=== PATIENT | male | born 1930 | race Caucasian/White ===

== ENCOUNTER 2018-10-14 11:01 | Emergency (ER) | payer MEDICARE ==
[~2018-10-14] VITALS: Ht 165.1 cm; Wt 100.0 kg
[2018-10-14 11:43] LABS: BASOPHILS # (AUTO) 0.1 X10'3 (0-0.2); BASOPHILS % (AUTO) 0.8 % (0-1); EOSINOPHILS # (AUTO) 0.2 X10'3 (0-0.9); EOSINOPHILS % (AUTO) 2.5 % (0-6); HEMATOCRIT 39.9 % (42.0-52.0); HEMOGLOBIN 12.8 g/dl (14.0-17.9); LYMPHOCYTES # (AUTO) 1.2 X10'3 (1.1-4.8); LYMPHOCYTES % (AUTO) 13.1 % (21-51); MEAN CORPUSCULAR HEMOGLOBIN 30.6 PG (27.0-31.0); MEAN CORPUSCULAR HGB CONC 32.1 g/dL (33.0-36.5); MEAN CORPUSCULAR VOLUME 95.2 FL (78-98); MEAN PLATELET VOLUME 6.3 FL (7.4-10.4); MONOCYTES # (AUTO) 0.8 X10'3 (0-0.9); MONOCYTES % (AUTO) 9.3 % (2-12); NEUTROPHILS # (AUTO) 6.6 X10'3 (1.8-7.7); NEUTROPHILS % (AUTO) 74.3 % (42-75); PLATELET COUNT 286 X10'3 (140-440); RED BLOOD COUNT 4.19 X10'6 (4.70-6.10); RED CELL DISTRIBUTION WIDTH 18.3 % (11.5-14.5)
[2018-10-14 11:52] LABS: ALANINE AMINOTRANSFERASE 39 U/L (12-78); ALBUMIN 3.2 G/DL (3.4-5.0); ALBUMIN/GLOBULIN RATIO 0.9 (1.1-1.5); ALKALINE PHOSPHATASE 96 IU/L (46-116); ANION GAP 7 (8-16); ASPARTATE AMINO TRANSFERASE 29 U/L (10-37); BILIRUBIN,TOTAL 0.3 MG/DL (0.1-1.0); BLOOD UREA NITROGEN 23 MG/DL (7-18); CALCIUM 8.9 MG/DL (8.5-10.1); CHLORIDE 100 MMOL/L (99-107); CREATININE 1.21 MG/DL (0.60-1.10); GLUCOSE 90 MG/DL (70-104); POTASSIUM 4.2 MMOL/L (3.5-5.1); SODIUM 139 MMOL/L (135-145); TOTAL CARBON DIOXIDE 32.2 MMOL/L (24-32); TOTAL PROTEIN 6.7 G/DL (6.4-8.2); eGFR 57 ML/MIN
[2018-10-14 11:55] LABS: INR 0.9 INR; PARTIAL THROMBOPLASTIN TIME 26 SECONDS (22-32); PROTHROMBIN TIME 9.6 SECONDS (9.0-12.0)
[2018-10-14 11:58] VITALS: BP 182/114
[2018-10-14] MEDS ORDERED: furosemide 20MG tablet PO ONE (12:10)
[2018-10-14] MEDS ORDERED: AMLO10TA PO (12:41)
== END 2018-10-14 13:16 | disposition home or self-care (01) ==
LOC: ER 11:03
DX: I11.0 Hypertensive heart disease with heart failure (principal); I50.9 Heart failure, unspecified; R60.0 Localized edema; Z98.890 Other specified postprocedural states; Z88.1 Allergy status to other antibiotic agents; Z88.6 Allergy status to analgesic agent; Z88.5 Allergy status to narcotic agent; Z79.899 Other long term (current) drug therapy
CPT/HCPCS: 36415; 71045; 80053; 83880; 84484; 85025; 85610; 85730; 93005; 99284

== ENCOUNTER 2019-01-17 11:49 | Day surgery (SDC) | payer MEDICARE, BC ==
[2019-01-13 11:43] LABS: BASOPHILS # (AUTO) 0.1 X10'3 (0-0.2); BASOPHILS % (AUTO) 0.8 % (0-1); EOSINOPHILS # (AUTO) 0.2 X10'3 (0-0.9); EOSINOPHILS % (AUTO) 2.6 % (0-6); HEMATOCRIT 31.9 % (42.0-52.0); HEMOGLOBIN 10.3 g/dl (14.0-17.9); LYMPHOCYTES # (AUTO) 1.3 X10'3 (1.1-4.8); LYMPHOCYTES % (AUTO) 15.9 % (21-51); MEAN CORPUSCULAR HEMOGLOBIN 30.6 PG (27.0-31.0); MEAN CORPUSCULAR HGB CONC 32.2 g/dL (33.0-36.5); MEAN PLATELET VOLUME 6.3 FL (7.4-10.4); MONOCYTES # (AUTO) 1.1 X10'3 (0-0.9); NEUTROPHILS # (AUTO) 5.5 X10'3 (1.8-7.7); NEUTROPHILS % (AUTO) 67.7 % (42-75); PLATELET COUNT 350 X10'3 (140-440); RED BLOOD COUNT 3.36 X10'6 (4.70-6.10); RED CELL DISTRIBUTION WIDTH 18.2 % (11.5-14.5); WHITE BLOOD COUNT 8.2 X10'3 (4.5-11.0)
[2019-01-13 11:52] LABS: ALBUMIN 2.7 G/DL (3.4-5.0); ANION GAP 8 (8-16); BLOOD UREA NITROGEN 21 MG/DL (7-18); BUN/CREATININE RATIO 13.7 (5.4-32.0); CALCIUM 8.6 MG/DL (8.5-10.1); CHLORIDE 100 MMOL/L (99-107); CREATININE 1.53 MG/DL (0.60-1.10); GLUCOSE 94 MG/DL (70-104); SODIUM 138 MMOL/L (135-145); TOTAL CARBON DIOXIDE 30.2 MMOL/L (24-32); eGFR 43 ML/MIN
[2019-01-13 11:56] LABS: PARTIAL THROMBOPLASTIN TIME 29 SECONDS (22-32); POTASSIUM 3.7 MMOL/L (3.5-5.1)
[~2019-01-17] VITALS: Ht 167.6 cm; Wt 94.5 kg
[~2019-01-17 11:49] MED LIST: AMLO10TA PO
[2019-01-17 12:30] VITALS: BP 129/72
[2019-01-17] MEDS ORDERED: RANI300T4 PO (14:06)
[2019-01-17] MEDS ORDERED: CARB1TAB23 PO (14:06)
[2019-01-17] MEDS ORDERED: [UNRECOGNIZED DRUG - CODE] PO (14:06)
[2019-01-17] MEDS ORDERED: OMEP20CA11 PO (14:06)
[2019-01-17] MEDS ORDERED: FURO-149 PO (14:06)
[2019-01-17] MEDS ORDERED: FERR325T28 PO (14:06)
[2019-01-17] MEDS ORDERED: MULT-933 PO (14:06)
[2019-01-17] MEDS ORDERED: MELA3TAB PO (14:06)
[2019-01-17] MEDS ORDERED: DOXE50CA4 PO (14:06)
[2019-01-17] MEDS ORDERED: PRED20TA PO (14:06)
[2019-01-17] MEDS ORDERED: BACL5TAB PO (14:06)
[2019-01-17] MEDS ORDERED: SULFAMETHOXAZOLE PO (14:06)
[2019-01-17] MEDS ORDERED: DIPH25CA83 PO (14:06)
[2019-01-17] MEDS ORDERED: LEFL10TA16 PO (14:06)
[2019-01-17] MEDS ORDERED: DOXA2TAB PO (14:06)
[2019-01-17] MEDS ORDERED: POTA20TA10 PO (14:06)
[2019-01-17] MEDS ORDERED: DULO60CA45 PO (14:06)
[2019-01-17] MEDS ORDERED: CETI10CA PO (14:06)
[2019-01-17] MEDS ORDERED: CALC-787 PO (14:06)
[2019-01-17] MEDS ORDERED: PRAM0.129 PO (14:06)
[2019-01-17] MEDS ORDERED: SIMV20TA5 PO (14:06)
[2019-01-17] MEDS ORDERED: DICL75TA5 PO (14:06)
[2019-01-17] MEDS ORDERED: ASPI-611 PO (14:06)
[2019-01-17] MEDS ORDERED: FLUT16SP10 (14:06)
[2019-01-17] MEDS ORDERED: LEVO50TA8 PO (14:06)
[2019-01-17] MEDS ORDERED: ACET-812 PO (14:06)
[2019-01-17] MEDS ORDERED: GABA-532 PO (14:06)
[2019-01-17] MEDS ORDERED: diphenhydrAMINE 25mg capsule PO PRN (14:20)
[2019-01-17] MEDS ORDERED: normal saline 1,000 ML IV SCH (14:20)
[2019-01-17] MEDS ORDERED: LORazepam 0.5 MG tablet PO PRN (14:20)
[2019-01-17] MEDS ORDERED: LIDOcaine 1% (10mg/ml)w/preservative injection 20ml MDV ONE (16:33)
[2019-01-17] MEDS ORDERED: iohexol 350MG/ML 100ml bottle IV ONE (16:33)
--- NOTE | 2019-01-17 17:54 | NUR ---
PT HAVING ADVERSE REACTION TO ATIVAN, RESTLESS AND HAVING MILD HALLUCINATIONS. FILLER BLENDER INFORMED PRIOR TO PROCEDURE.
[2019-01-17 19:23] VITALS: BP 136/76
[2019-01-17 19:38] VITALS: BP 141/87
[2019-01-17 19:53] VITALS: BP 140/90
[2019-01-17 20:09] VITALS: BP 149/89
[2019-01-17] MEDS ORDERED: HYDROcodone/acetaminophen 5mg/325mg tablet PO PRN (20:15)
[2019-01-17] MEDS ORDERED: HYDROcodone/acetaminophen 10/325mg tab PO PRN (20:15)
[2019-01-17] MEDS ORDERED: ondansetron/PF 4mg/2ml inj IV PRN (20:15)
[2019-01-17] MEDS ORDERED: proCHLORperazine 10 MG/2 ml inj IV PRN (20:15)
[2019-01-17] MEDS ORDERED: OXAZEpam 15mg capsule PO PRN (20:15)
[2019-01-17 20:23] VITALS: BP 159/80
== END 2019-01-17 21:05 | disposition home or self-care (01) ==
LOC: SSTAY O 11:49
PROVIDERS: ATTEND Internal Medicine Interventional Cardiology
DX: I25.10 Atherosclerotic heart disease of native coronary artery without angina pectoris (principal); G47.33 Obstructive sleep apnea (adult) (pediatric); I10 Essential (primary) hypertension; E03.9 Hypothyroidism, unspecified; E78.5 Hyperlipidemia, unspecified; M06.9 Rheumatoid arthritis, unspecified; G20 Parkinson's disease; D64.9 Anemia, unspecified; Z79.899 Other long term (current) drug therapy; Z79.82 Long term (current) use of aspirin; I35.0 Nonrheumatic aortic (valve) stenosis; Z88.9 Allergy status to unspecified drugs, medicaments and biological substances; Z88.4 Allergy status to anesthetic agent; Z91.041 Radiographic dye allergy status
CPT/HCPCS: 36415; 80048; 85025; 85610; 85730; 93005; 93454; A6257; C1769; J1644; J2001; J7030; Q0163; Q9967; A4620

== ENCOUNTER 2019-06-30 11:41 | Inpatient (IN) | payer MEDICARE, BC ==
[~2019-06-30] VITALS: Ht 165.1 cm; Wt 97.7 kg
[~2019-06-30 11:41] MED LIST changes: +ACET-812 PO; -AMLO10TA PO; +ASPI-611 PO; +BACL5TAB PO; +CALC-787 PO; +CARB1TAB23 PO; +CETI10CA PO; +DICL75TA5 PO; +DIPH25CA83 PO; +DOXA2TAB PO; +DOXE50CA4 PO; +DULO60CA45 PO; +FERR325T28 PO; +FLUT16SP10; +FURO-149 PO; +GABA-532 PO; +LEFL10TA16 PO; +LEVO50TA8 PO; +MELA3TAB64 PO; +MULT-933 PO; +OMEP20CA11 PO; +POTA20TA10 PO; +PRAM0.129 PO; +PRED20TA PO; +RANI300T4 PO; +SIMV-42 PO; +SULFAMETHOXAZOLE PO; +[UNRECOGNIZED DRUG - CODE] PO
[2019-06-30 12:09] LABS: BASOPHILS # (AUTO) 0.1 X10'3 (0-0.2); BASOPHILS % (AUTO) 1.1 % (0-1); EOSINOPHILS # (AUTO) 0.6 X10'3 (0-0.9); EOSINOPHILS % (AUTO) 6.5 % (0-6); HEMATOCRIT 29.7 % (42.0-52.0); HEMOGLOBIN 9.7 g/dl (14.0-17.9); LYMPHOCYTES # (AUTO) 1.2 X10'3 (1.1-4.8); LYMPHOCYTES % (AUTO) 14.4 % (21-51); MEAN CORPUSCULAR HEMOGLOBIN 28.9 PG (27.0-31.0); MEAN CORPUSCULAR HGB CONC 32.4 g/dL (33.0-36.5); MEAN PLATELET VOLUME 6.6 FL (7.4-10.4); MONOCYTES # (AUTO) 0.8 X10'3 (0-0.9); MONOCYTES % (AUTO) 9.6 % (2-12); NEUTROPHILS # (AUTO) 5.9 X10'3 (1.8-7.7); NEUTROPHILS % (AUTO) 68.4 % (42-75); PLATELET COUNT 303 X10'3 (140-440); RED BLOOD COUNT 3.34 X10'6 (4.70-6.10); RED CELL DISTRIBUTION WIDTH 18.6 % (11.5-14.5); WHITE BLOOD COUNT 8.6 X10'3 (4.5-11.0)
[2019-06-30 12:10] LABS: CLARITY,URINE CLEAR (Clear); COLOR,URINE STRAW (Yellow); GLUCOSE, URINE NEGATIVE (Neg); KETONES,URINE NEGATIVE (Neg); LEUKOCYTE ESTERASE ,URINE NEGATIVE (Neg); NITRITES, URINE NEGATIVE (Neg); OCCULT BLOOD,URINE NEGATIVE (Neg); PH,URINE 5.5 (4.8-8.0); PROTEIN,URINE NEGATIVE (Neg); UA COLLECTION TYPE URINAL; UROBILINOGEN,URINE 0.2 E.U/dL (0.2-1.0)
[2019-06-30 12:19] LABS: ALANINE AMINOTRANSFERASE 11 U/L (12-78); ALBUMIN/GLOBULIN RATIO 0.8 (1.1-1.5); ALKALINE PHOSPHATASE 111 IU/L (46-116); ANION GAP 7 (8-16); ASPARTATE AMINO TRANSFERASE 21 U/L (10-37); BILIRUBIN,TOTAL 0.3 MG/DL (0.1-1.0); BLOOD UREA NITROGEN 21 MG/DL (7-18); BUN/CREATININE RATIO 17.2 (5.4-32.0); CHLORIDE 104 MMOL/L (99-107); CREATININE 1.22 MG/DL (0.60-1.10); GLUCOSE 92 MG/DL (70-104); POTASSIUM 3.7 MMOL/L (3.5-5.1); SODIUM 140 MMOL/L (135-145); TOTAL CARBON DIOXIDE 29.3 MMOL/L (24-32); TOTAL PROTEIN 6.8 G/DL (6.4-8.2); eGFR 56 ML/MIN
[2019-06-30] MEDS ORDERED: normal saline 1000ML IV soln IVB ONE (13:05)
[2019-06-30] MEDS ORDERED: magnesium 2GM in 50ml NS 50 ML IV PRN (13:10)
[2019-06-30] MEDS ORDERED: potassium Cl 20 mEq SR tablet PO PRN (13:10)
[2019-06-30] MEDS ORDERED: acetaminophen 325mg tablet PO PRN (13:10)
[2019-06-30] MEDS ORDERED: magnesium Cl slow-release 64mg tablet PO PRN (13:10)
[2019-06-30] MEDS ORDERED: potassium CL 10mEq/100ml bag 100 ML IV PRN ×2 (13:10)
[2019-06-30] MEDS ORDERED: ondansetron/PF 4mg/2ml inj IV PRN (13:10)
[2019-06-30] MEDS ORDERED: magnesium 4gm in 100ml NS 100 ML IV PRN (13:10)
[2019-06-30 13:19] LABS: PLATELET ESTIMATE NORMAL
[2019-06-30] MEDS ORDERED: CLOP75TA35 PO (13:19)
[2019-06-30 13:20] LABS: ANISOCYTOSIS 2+; POIKILOCYTOSIS 1+; POLYCHROMASIA 1+
[2019-06-30] MEDS ORDERED: DIPH1TAB PO (13:21)
[2019-06-30] MEDS ORDERED: FIBER PO (13:22)
[2019-06-30] MEDS ORDERED: OMEG1CAP13 PO (13:25)
[2019-06-30] MEDS ORDERED: UBID50TA3 PO (13:30)
[2019-06-30] MEDS ORDERED: LUTE40CA PO (13:30)
[2019-06-30] MEDS ORDERED: PRED5TAB PO ×2 (13:40)
[2019-06-30] MEDS ORDERED: ATOR20TA PO (13:43)
[2019-06-30] MEDS ORDERED: MELA3TAB64 PO (13:43)
[2019-06-30] MEDS ORDERED: HYDR-4353 PO (13:49)
[2019-06-30] MEDS ORDERED: TURM500C4 PO (13:52)
[2019-06-30] MEDS ORDERED: PEG 3350/Na sulf,bicarb,Cl/KCl oral sol 4 liter bottle PO ONE (14:05)
--- NOTE | 2019-06-30 14:50 | NUR ---
Patient in room ED 13. I have received report from NANCY Bernardo and had the opportunity to ask questions and assume patient care.
[2019-06-30 15:00] VITALS: BP_SYST 184; BP_DIAS 58; BP_DIAS 86
[2019-06-30 15:13] VITALS: BP 181/86
--- NOTE | 2019-06-30 15:15 | NUR ---
Two RN Skin Assessment has been completed at 1510 with Sandy Weeks RN,all skin assessed,with the following findings. redness noted on scrotum and red, dry, intact skin noted on R ankle.
--- NOTE | 2019-06-30 15:36 | NUR ---
Pt's family requested Dr. Louis Juan be notified of patient's admission to [facility]. Dtr reports patient had a "TAVR" and is to "be on antibiotics with any procedure". Call was placed to Dr Juan's office by myself. "Alanis" was notified of pt's room number and admitting MD's name (Dr. Coe).
[2019-06-30] MEDS: normal saline 1000ml 1,000 ML IV SCH (15:40)
[2019-06-30] MEDS ORDERED: non-formulary drug (Acetaminophen (Tylenol Extra Strength) 1 TABLET) PO SCH (15:50)
--- NOTE | 2019-06-30 16:06 | NUR ---
PAGER ID: [phone] MESSAGE: Rm [id number]. pt. Chidi Avendaño. Pt. BP is 184/58 sitting and 181/86 laying down. pt. has no PRNs and states that it's higher than usual. please advise. NANCY Aviles [phone]
[2019-06-30] MEDS ORDERED: hydrALAZINE 25 MG tablet PO PRN (16:10)
[2019-06-30] MEDS ORDERED: carbidoba-levodopa 25-100mg tablet PO ONE (16:10)
[2019-06-30] MEDS ORDERED: pramipexole 0.25mg tablet PO ONE (16:10)
--- NOTE | 2019-06-30 17:45 | NUR ---
Patients daughter wanting to have medications addressed with Dr Coe. Patients daughter states that patient takes Alpena 10/325 QHS at home, Also takes Baclofen 5mg Q6H prn usually takes twice a day. Cymbalta 60mg PO BID and wanting to make sure the doctor is aware that patient had TAVER ( Trans Aortic Valve Replacement) and they were told anytime he has a procedure he is to have antibiotics. Per Dr Coe ok to order Alpena 10/325 QHS, Hold off on the Baclofen for now and the Cymbalta because she does not want to over sedate patient due to he will be drinking Golytle tonight for procedure in the morning. Dr Coe states patient does not need antibiotics for the Colonoscopy. Relayed 's response to patient and she is good with this plan.
--- NOTE | 2019-06-30 18:41 | NUR ---
Received report from Amarilys Ivey pt is currently receiving a ECHO
[2019-06-30] MEDS: acetaminophen 325mg tablet PO PRN (18:53)
[2019-06-30 19:00] VITALS: BP 159/74
--- NOTE | 2019-06-30 19:26 | NUR ---
Problems reprioritized. Patient report given, questions answered & plan of care reviewed with NANCY Moreira.
[2019-06-30] MEDS: doxepin 25mg capsule PO SCH (20:58)
[2019-06-30] MEDS: atorvastatin 20mg tablet PO SCH (20:58)
[2019-06-30] MEDS: pramipexole 0.25mg tablet PO SCH (21:00)
[2019-06-30] MEDS: doxazosin mesylate 2mg tablet PO SCH (21:01)
[2019-06-30] MEDS: HYDROcodone/acetaminophen 10/325mg tab PO SCH (21:03)
[2019-06-30] MEDS: carbidoba-levodopa 25-100mg tablet PO SCH (21:03)
[2019-06-30] MEDS: pantoprazole 40 MG vial IV SCH (21:04)
[2019-07-01] VITALS (8 sets, daily range): BP systolic 120–170; BP diastolic 53–75
--- NOTE | 2019-07-01 02:04 | NUR ---
found pt sitting on the side of the bed, struggling to use the urinal, helped pt got him back into bed, pt was confused unsure of where he was, when he was admitted, or why he was here, reorient pt and got him settled into bed Addendum: 07/01/19 at 0205 by Lillie Alcantara RN turned on pts bed alarm
[2019-07-01 06:12] LABS: BASOPHILS # (AUTO) 0.1 X10'3 (0-0.2); BASOPHILS % (AUTO) 1.4 % (0-1); EOSINOPHILS # (AUTO) 0.5 X10'3 (0-0.9); EOSINOPHILS % (AUTO) 8.6 % (0-6); HEMATOCRIT 26.6 % (42.0-52.0); HEMOGLOBIN 8.7 g/dl (14.0-17.9); LYMPHOCYTES # (AUTO) 0.9 X10'3 (1.1-4.8); LYMPHOCYTES % (AUTO) 16.2 % (21-51); MEAN CORPUSCULAR HEMOGLOBIN 28.7 PG (27.0-31.0); MEAN CORPUSCULAR HGB CONC 32.7 g/dL (33.0-36.5); MEAN PLATELET VOLUME 6.8 FL (7.4-10.4); MONOCYTES # (AUTO) 0.6 X10'3 (0-0.9); MONOCYTES % (AUTO) 9.8 % (2-12); NEUTROPHILS # (AUTO) 3.7 X10'3 (1.8-7.7); PLATELET COUNT 284 X10'3 (140-440); RED BLOOD COUNT 3.02 X10'6 (4.70-6.10); RED CELL DISTRIBUTION WIDTH 18.1 % (11.5-14.5); WHITE BLOOD COUNT 5.8 X10'3 (4.5-11.0)
[2019-07-01 06:20] LABS: ALBUMIN 2.6 G/DL (3.4-5.0); ANION GAP 7 (8-16); BLOOD UREA NITROGEN 17 MG/DL (7-18); CALCIUM 8.6 MG/DL (8.5-10.1); CHLORIDE 107 MMOL/L (99-107); CREATININE 1.06 MG/DL (0.60-1.10); GLUCOSE 77 MG/DL (70-104); MAGNESIUM 1.7 MG/DL (1.5-2.4); POTASSIUM 3.3 MMOL/L (3.5-5.1); SODIUM 142 MMOL/L (135-145); TOTAL CARBON DIOXIDE 28.5 MMOL/L (24-32); eGFR 66 ML/MIN
--- NOTE | 2019-07-01 06:36 | NUR ---
Problems reprioritized. Patient report given, questions answered & plan of care reviewed with Cece CRUZ.
--- NOTE | 2019-07-01 07:14 | NUR ---
Patient in room U[facility]ILA 360. I have received report from Digna CRUZ and had the opportunity to ask questions and assume patient care.
[2019-07-01] MEDS: K and/or MAG REPLACEMENT MC SCH (08:00)
[2019-07-01] MEDS: carbidoba-levodopa 25-100mg tablet PO SCH ×3 (08:14→20:57)
[2019-07-01] MEDS: potassium Cl 20 mEq SR tablet PO PRN ×3 (08:14→21:14)
[2019-07-01] MEDS: gabapentin 300mg capsule PO SCH (08:14)
[2019-07-01] MEDS: duloxetine 30mg CAPSULE.DR PO SCH (08:15)
[2019-07-01] MEDS: levoTHYROXINE 25mcg tablet PO SCH (08:15)
[2019-07-01] MEDS: pantoprazole 40 MG vial IV SCH ×2 (08:16→20:54)
[2019-07-01] MEDS: acetaminophen 325mg tablet PO PRN ×2 (08:16→16:44)
[2019-07-01] MEDS: pramipexole 0.25mg tablet PO SCH ×3 (08:16→20:55)
[2019-07-01] MEDS: normal saline 1000ml 1,000 ML IV SCH ×2 (09:06→21:24)
--- NOTE | 2019-07-01 10:02 | NUR ---
pt going to GI lab for a colonoscopy.
[2019-07-01] MEDS ORDERED: MIDAZolam 5mg/5ml vial ONE (10:08)
--- NOTE | 2019-07-01 12:00 | NUR ---
Pt in GI lab having a procedure. No vitals for noon hours.
--- NOTE | 2019-07-01 13:05 | NUR ---
pt back from GI lab.
--- NOTE | 2019-07-01 19:04 | NUR ---
Problems reprioritized. Patient report given, questions answered & plan of care reviewed with Deyanira CRUZ.
--- NOTE | 2019-07-01 19:07 | NUR ---
Patient in room [facility]ILA 360. I have received report from Cece Ivey and had the opportunity to ask questions and assume patient care. Addendum: 07/01/19 at 1909 by Lesley Duffy RN Amended: Links added.
--- NOTE | 2019-07-01 20:50 | NUR ---
up ambulated with assist to brp had mod amt bright red stool in the commode.
[2019-07-01] MEDS: doxepin 25mg capsule PO SCH (20:55)
[2019-07-01] MEDS: doxazosin mesylate 2mg tablet PO SCH (20:57)
[2019-07-01] MEDS: HYDROcodone/acetaminophen 10/325mg tab PO SCH (20:57)
[2019-07-01] MEDS: atorvastatin 20mg tablet PO SCH (20:58)
--- NOTE | 2019-07-01 21:30 | NUR ---
family left for home. set up on cpap on 3l his normal. no complaints at this time. medicated earlier forb back pain with po norco.
--- NOTE | 2019-07-01 23:30 | NUR ---
resting without changes. cpap on
[2019-07-02] VITALS (8 sets, daily range): BP systolic 115–155; BP diastolic 42–73
--- NOTE | 2019-07-02 01:00 | NUR ---
pt resting eyes closed with cpap on.
--- NOTE | 2019-07-02 03:00 | NUR ---
pt awoke confused inc in bed called Rn station [id number] where his was. found he had broken iv tubing ans was bleeding. stopped it disconnected iv and then hung new tubing on pt after flushing iv site with saline.pt remembered family in with him earlier and had left for home. pt had also called hosp production machine operator after Rn hung up and went in the room to help him. cpap and 02 was off. complete bed lien change done housekeeping in to clean the floor.pt gown changed new socks on. pt stated he's been 60 yrs and initially forgot he was in the hospital and woke up without his bedside him.
--- NOTE | 2019-07-02 04:19 | NUR ---
pt resting eyes closed with ns infusing at 5occ per hour and cpap on.
--- NOTE | 2019-07-02 05:18 | NUR ---
pt resting with cpap on and bed alarm on at this time.
--- NOTE | 2019-07-02 06:20 | NUR ---
Patient in room [facility] 360. I have received report from Deyanira CRUZ and had the opportunity to ask questions and assume patient care.
[2019-07-02 06:21] LABS: BASOPHILS # (AUTO) 0.1 X10'3 (0-0.2); BASOPHILS % (AUTO) 0.9 % (0-1); EOSINOPHILS # (AUTO) 0.5 X10'3 (0-0.9); EOSINOPHILS % (AUTO) 6.6 % (0-6); HEMATOCRIT 27.3 % (42.0-52.0); HEMOGLOBIN 8.9 g/dl (14.0-17.9); MEAN CORPUSCULAR HEMOGLOBIN 29.3 PG (27.0-31.0); MEAN CORPUSCULAR HGB CONC 32.8 g/dL (33.0-36.5); MEAN CORPUSCULAR VOLUME 89.2 FL (78-98); MEAN PLATELET VOLUME 6.9 FL (7.4-10.4); MONOCYTES # (AUTO) 0.7 X10'3 (0-0.9); MONOCYTES % (AUTO) 10.4 % (2-12); NEUTROPHILS # (AUTO) 4.8 X10'3 (1.8-7.7); NEUTROPHILS % (AUTO) 68.1 % (42-75); PLATELET COUNT 276 X10'3 (140-440); RED BLOOD COUNT 3.06 X10'6 (4.70-6.10); RED CELL DISTRIBUTION WIDTH 18.2 % (11.5-14.5); WHITE BLOOD COUNT 7.1 X10'3 (4.5-11.0)
--- NOTE | 2019-07-02 06:31 | NUR ---
Problems reprioritized. Patient report given, questions answered & plan of care reviewed with Linda Ivey. Addendum: 07/02/19 at 0632 by Lesley Duffy RN Amended: Links added.
[2019-07-02 06:35] LABS: ALBUMIN 2.7 G/DL (3.4-5.0); ANION GAP 5 (8-16); BLOOD UREA NITROGEN 16 MG/DL (7-18); CALCIUM 8.4 MG/DL (8.5-10.1); CHLORIDE 108 MMOL/L (99-107); CREATININE 1.23 MG/DL (0.60-1.10); GLUCOSE 89 MG/DL (70-104); MAGNESIUM 1.8 MG/DL (1.5-2.4); POTASSIUM 3.6 MMOL/L (3.5-5.1); SODIUM 142 MMOL/L (135-145); TOTAL CARBON DIOXIDE 29.3 MMOL/L (24-32); eGFR 56 ML/MIN
--- NOTE | 2019-07-02 07:02 | NUR ---
Patient in room [facility] 360. I have received report from Florencia CRUZ and had the opportunity to ask questions and assume patient care.
[2019-07-02] MEDS: K and/or MAG REPLACEMENT MC SCH (08:00)
[2019-07-02] MEDS: carbidoba-levodopa 25-100mg tablet PO SCH ×2 (08:15→13:48)
[2019-07-02] MEDS: pantoprazole 40 MG vial IV SCH (08:15)
[2019-07-02] MEDS: levoTHYROXINE 25mcg tablet PO SCH (08:16)
[2019-07-02] MEDS: duloxetine 30mg CAPSULE.DR PO SCH (08:16)
[2019-07-02] MEDS: gabapentin 300mg capsule PO SCH (08:16)
[2019-07-02] MEDS: pramipexole 0.25mg tablet PO SCH ×2 (08:25→13:48)
[2019-07-02] MEDS ORDERED: normal saline 1000ml 1,000 ML IV SCH (10:55)
[2019-07-02] MEDS ORDERED: LIDOcaine Viscous 15ml cup ONE (11:09)
[2019-07-02] MEDS ORDERED: MIDAZolam 5mg/5ml vial ONE (11:09)
[2019-07-02] MEDS ORDERED: loperamide 2mg capsule PO PRN (11:30)
[2019-07-02 16:37] LABS: HEMATOCRIT 26.9 % (42.0-52.0); HEMOGLOBIN 8.7 g/dl (14.0-17.9); MEAN CORPUSCULAR HEMOGLOBIN 28.8 PG (27.0-31.0); MEAN CORPUSCULAR HGB CONC 32.2 g/dL (33.0-36.5); MEAN CORPUSCULAR VOLUME 89.3 FL (78-98); MEAN PLATELET VOLUME 6.9 FL (7.4-10.4); PLATELET COUNT 262 X10'3 (140-440); RED BLOOD COUNT 3.01 X10'6 (4.70-6.10); RED CELL DISTRIBUTION WIDTH 18.3 % (11.5-14.5); WHITE BLOOD COUNT 6.1 X10'3 (4.5-11.0)
[2019-07-02] MEDS ORDERED: PANT40TA4 PO (17:39)
--- NOTE | 2019-07-02 19:04 | NUR ---
patient went for EGD results in chart. Dr yi and DR Coe called for DC orders DC pending repeat H&H. . Results called to DR Yi and DR Coe. Patient is for discharge . ALL DC instructions given to patient and family. Dc home via private car to home with family 1900 hrs.
[2019-07-02] MEDS ORDERED: psyllium seed 3.4 gm packet PO SCH (21:00)
== END 2019-07-02 19:00 | disposition home or self-care (01) | DRG 379 ==
LOC: ER 11:42 → ED HOLD 13:18 → SUR 3N 15:15
PROVIDERS: ADMIT Internal Medicine; ATTEND Internal Medicine
PROC: 5A09357 Assistance with Respiratory Ventilation, Less than 24 Consecutive Hours, Continuous Positive Airway Pressure (ICD-10-PCS; principal; 2019-07-01)
PROC: 0DJD8ZZ Inspection of Lower Intestinal Tract, Via Natural or Artificial Opening Endoscopic (ICD-10-PCS; 2019-07-01)
PROC: 0DB98ZX Excision of Duodenum, Via Natural or Artificial Opening Endoscopic, Diagnostic (ICD-10-PCS; 2019-07-02)
PROC: 0DB68ZX Excision of Stomach, Via Natural or Artificial Opening Endoscopic, Diagnostic (ICD-10-PCS; 2019-07-02)
DX: K25.4 Chronic or unspecified gastric ulcer with hemorrhage (principal); K57.31 Diverticulosis of large intestine without perforation or abscess with bleeding; G20 Parkinson's disease; G25.81 Restless legs syndrome; K64.8 Other hemorrhoids; D64.9 Anemia, unspecified; E03.9 Hypothyroidism, unspecified; E66.9 Obesity, unspecified; E78.00 Pure hypercholesterolemia, unspecified; E78.5 Hyperlipidemia, unspecified; F02.80 Dementia in other diseases classified elsewhere, unspecified severity, without behavioral disturbance, psychotic disturbance, mood disturbance, and anxiety; I11.0 Hypertensive heart disease with heart failure; I25.10 Atherosclerotic heart disease of native coronary artery without angina pectoris; G47.30 Sleep apnea, unspecified; I50.9 Heart failure, unspecified; K44.9 Diaphragmatic hernia without obstruction or gangrene; M06.9 Rheumatoid arthritis, unspecified; Z66 Do not resuscitate; Z95.2 Presence of prosthetic heart valve; Z88.1 Allergy status to other antibiotic agents; Z88.8 Allergy status to other drugs, medicaments and biological substances; Z68.35 Body mass index [BMI] 35.0-35.9, adult
CPT/HCPCS: 36415; 43239; 45378; 80048; 80053; 81003; 83735; 85025; 85027; 85610; 86885; 86900; 86901; 87081; 88305; 88342; 93306; 97112; 97116; 97162; 97530; 97535; 99152; 99153; 99285; A4620; C9113; G0378; J2250; J7030; J7040

== ENCOUNTER 2019-07-12 16:07 | Emergency (ER) | payer MEDICARE, BC ==
[~2019-07-12] VITALS: Ht 167.6 cm; Wt 95.5 kg
[~2019-07-12 16:07] MED LIST changes: +ATOR20TA PO; -CETI10CA PO; +CLOP75TA35 PO; -DICL75TA5 PO; -DIPH25CA83 PO; +FIBER PO; -FLUT16SP10; -LEFL10TA16 PO; +LUTE40CA PO; +OMEG1CAP13 PO; -OMEP20CA11 PO; +PANT40TA4 PO; -PRED20TA PO; -RANI300T4 PO; -SIMV-42 PO; -SULFAMETHOXAZOLE PO; +TURM500C4 PO; +UBID50TA3 PO; -[UNRECOGNIZED DRUG - CODE] PO
[2019-07-12 20:10] VITALS: BP 145/70
== END 2019-07-12 20:11 | disposition home or self-care (01) ==
LOC: ER 16:08
DX: L03.115 Cellulitis of right lower limb (principal); R19.7 Diarrhea, unspecified; I11.0 Hypertensive heart disease with heart failure; I50.9 Heart failure, unspecified; E78.00 Pure hypercholesterolemia, unspecified; E03.9 Hypothyroidism, unspecified; G47.30 Sleep apnea, unspecified; M06.9 Rheumatoid arthritis, unspecified; Z98.890 Other specified postprocedural states; Z88.1 Allergy status to other antibiotic agents; Z88.6 Allergy status to analgesic agent; Z88.5 Allergy status to narcotic agent; Z88.8 Allergy status to other drugs, medicaments and biological substances; Z79.82 Long term (current) use of aspirin; Z79.899 Other long term (current) drug therapy
CPT/HCPCS: 93971; 99284

== ENCOUNTER 2022-02-21 09:48 | Emergency (ER) | payer MEDICARE, BC ==
[~2022-02-21] VITALS: Ht 167.6 cm; Wt 100.0 kg
[~2022-02-21 09:48] MED LIST changes: +CLOP75TA34 PO; -CLOP75TA35 PO; -DULO60CA45 PO; +DULO60CA60 PO; +MELA3TAB39 PO; -MELA3TAB64 PO; -PANT40TA4 PO; +PANT40TA54 PO; +POTA-197 PO; -POTA20TA10 PO
[2022-02-21 11:42] VITALS: BP 151/60
[2022-02-21] MEDS ORDERED: celeCOXIB 100mg capsule PO SCH (12:35)
[2022-02-21] MEDS ORDERED: celeCOXIB 100mg capsule PO ONE (12:35)
[2022-02-21] MEDS ORDERED: HYDROmorphone inj. 0.5 MG/0.5 ML DISP.SYRIN IV ONE (12:40)
--- NOTE | 2022-02-21 14:20 | NUR ---
Pt reports 7/10 baseline pain after taking Dilaudid. Pt reports effective pain relief.
[2022-02-21] MEDS ORDERED: LORA-268 PO (14:37)
== END 2022-02-21 15:05 | disposition home or self-care (01) ==
LOC: ER 09:48
DX: M25.511 Pain in right shoulder (principal); G89.29 Other chronic pain; I50.9 Heart failure, unspecified; I11.0 Hypertensive heart disease with heart failure; E78.00 Pure hypercholesterolemia, unspecified; E03.9 Hypothyroidism, unspecified; Z85.9 Personal history of malignant neoplasm, unspecified; Z98.890 Other specified postprocedural states; Z88.1 Allergy status to other antibiotic agents; Z88.8 Allergy status to other drugs, medicaments and biological substances; Z88.6 Allergy status to analgesic agent; Z88.5 Allergy status to narcotic agent; Z79.82 Long term (current) use of aspirin; Z79.899 Other long term (current) drug therapy
CPT/HCPCS: 96374; 99283; J1170

== ENCOUNTER 2022-03-28 10:18 | Inpatient (IN) | payer OTHER, MEDICARE, BC ==
[~2022-03-28] VITALS: Ht 182.9 cm; Wt 90.9 kg
[~2022-03-28 10:18] MED LIST changes: +CARB-395 PO; -CARB1TAB23 PO; +LORA-268 PO
[2022-03-28] MEDS ORDERED: magnesium 2GM in 50ml NS 50 ML IV ONE (10:50)
[2022-03-28] MEDS ORDERED: methylPREDNISolone sod succ 125mg/2ml vial IV ONE (10:50)
[2022-03-28] MEDS ORDERED: albuterol 2.5 MG/3 ML nebule ONE (10:51)
[2022-03-28] MEDS ORDERED: NORepinephrine 8mg/ 250ml NS 250 ML IV SCH (11:05)
[2022-03-28 11:20] LABS: ALBUMIN/GLOBULIN RATIO 0.9 (1.1-1.5); ALKALINE PHOSPHATASE 80 IU/L (46-116); ANION GAP 12 (8-16); ASPARTATE AMINO TRANSFERASE 33 U/L (10-37); BILIRUBIN,TOTAL 0.8 MG/DL (0.1-1.0); BLOOD UREA NITROGEN 27 MG/DL (7-18); BUN/CREATININE RATIO 17.3 (5.4-32.0); CALCIUM 8.5 MG/DL (8.5-10.1); CHLORIDE 102 MMOL/L (99-107); CREATININE 1.56 MG/DL (0.60-1.10); GLUCOSE 163 MG/DL (70-104); SODIUM 143 MMOL/L (135-145); TOTAL CARBON DIOXIDE 28.9 MMOL/L (24-32); TOTAL PROTEIN 6.3 G/DL (6.4-8.2); eGFR 42 ML/MIN
[2022-03-28] MEDS ORDERED: ringers solution, lacted 1,000 ML IV ONE ×2 (11:20→11:30)
[2022-03-28 11:22] LABS: APTT 31 SECONDS (22-32)
[2022-03-28 11:26] LABS: ALANINE AMINOTRANSFERASE < 6 U/L (12-78)
[2022-03-28 11:34] LABS: BASOPHILS # (AUTO) 0.1 X10'3 (0-0.2); BASOPHILS % (AUTO) 0.3 % (0-1); EOSINOPHILS % (AUTO) 0 % (0-6); HEMATOCRIT 34.7 % (42.0-52.0); HEMOGLOBIN 11.1 g/dl (14.0-17.9); LYMPHOCYTES # (AUTO) 1.6 X10'3 (1.1-4.8); LYMPHOCYTES % (AUTO) 7.3 % (21-51); MEAN CORPUSCULAR HEMOGLOBIN 28.9 PG (27.0-31.0); MEAN CORPUSCULAR HGB CONC 31.9 g/dL (33.0-36.5); MEAN CORPUSCULAR VOLUME 90.6 FL (78-98); MEAN PLATELET VOLUME 8.3 FL (7.4-10.4); MONOCYTES # (AUTO) 2.1 X10'3 (0-0.9); MONOCYTES % (AUTO) 9.3 % (2-12); NEUTROPHILS # (AUTO) 18.4 X10'3 (1.8-7.7); NEUTROPHILS % (AUTO) 83.1 % (42-75); PLATELET COUNT 147 X10'3 (140-440); RED BLOOD COUNT 3.83 X10'6 (4.70-6.10); RED CELL DISTRIBUTION WIDTH 16.5 % (11.5-14.5); WHITE BLOOD COUNT 22.1 X10'3 (4.5-11.0)
[2022-03-28] MEDS ORDERED: piperacillin/tazo 4.5gm/100ml 100 ML IV ONE (11:35)
[2022-03-28] MEDS ORDERED: vancomycin/NS 1 GM ADD-VANTAGE 250 ML X 1 DOSE IV ONE (12:00)
[2022-03-28 12:08] LABS: TOTAL CELLS COUNTED 100
[2022-03-28 12:09] LABS: ANISOCYTOSIS 1+; PLATELET ESTIMATE NORMAL
[2022-03-28 12:10] LABS: ELLIPTOCYTES FEW; SCHISTOCYTES FEW
[2022-03-28] MEDS ORDERED: LORA-268 PO (13:01)
[2022-03-28 13:44] LABS: CLARITY,URINE CLOUDY (Clear); COLOR,URINE YELLOW (Yellow); GLUCOSE, URINE NEGATIVE (Neg); KETONES,URINE TRACE mg/dl (Neg); LEUKOCYTE ESTERASE ,URINE MODERATE (Neg); NITRITES, URINE NEGATIVE (Neg); OCCULT BLOOD,URINE LARGE (Neg); PH,URINE 5.5 (4.8-8.0); PROTEIN,URINE 100 mg/dl (Neg); UROBILINOGEN,URINE 0.2 E.U/dL (0.2-1.0)
[2022-03-28 13:47] LABS: UA COLLECTION TYPE FOLEY CATH
[2022-03-28] MEDS ORDERED: heparin 10,000 units/1 ML INJ IV PRN ×2 (13:55→23:15)
[2022-03-28] MEDS ORDERED: heparin 10,000 units/1 ML INJ IV ONE (13:55)
[2022-03-28] MEDS ORDERED: PERFLUTREN PROTEIN-A MICROSPHR (Optison) 0.22 MG/ML 3ML VIAL IV ONE ×2 (13:55→14:25)
[2022-03-28] MEDS ORDERED: HEPARIN SOD,PORK IN 0.45% NACL 250 ML IV SCH ×2 (13:55→23:15)
[2022-03-28] MEDS ORDERED: aspirin 325mg tablet PO ONE (13:55)
[2022-03-28 14:10] LABS: BACTERIA,URINE 4+ /HPF (Neg); WBC,URINE TNTC /HPF (0-4)
[2022-03-28 14:11] LABS: RBC,URINE 50-100 /HPF (0-2); SQUAMOUS EPITHELIAL CELL,UR FEW /LPF (FEW)
--- NOTE | 2022-03-28 14:22 | NUR ---
CALLED PHARMACY TO VERIFY PT BITA AND PRN MEDS.
[2022-03-28] MEDS ORDERED: potassium CL 10mEq/100ml bag 100 ML IV PRN (14:25)
[2022-03-28] MEDS ORDERED: magnesium 4gm in 100ml NS 100 ML IV PRN (14:25)
[2022-03-28] MEDS ORDERED: HYDROmorphone/PF 0.2 MG/ML SYRINGE IV PRN (14:25)
[2022-03-28] MEDS ORDERED: magnesium 2GM in 50ml NS 50 ML IV PRN (14:25)
[2022-03-28] MEDS ORDERED: bisacodyl 10mg suppository rectal RC PRN (14:25)
[2022-03-28] MEDS ORDERED: magnesium hydroxide 30ml (MOM) UD suspension PO PRN (14:25)
[2022-03-28] MEDS ORDERED: POTASSIUM BICARB 20meq eff tab 20 MEQ TABLET.EFF PO PRN ×2 (14:25)
[2022-03-28] MEDS ORDERED: ondansetron/PF 4mg/2ml inj IV PRN (14:25)
[2022-03-28] MEDS ORDERED: ondansetron 4mg rapidly disintigrating tab PO PRN (14:25)
[2022-03-28] MEDS ORDERED: magnesium Cl slow-release 64mg tablet PO PRN (14:25)
[2022-03-28] MEDS ORDERED: acetaminophen 325mg tablet PO PRN ×2 (14:25)
[2022-03-28] MEDS ORDERED: mag hydrox/Alum hydrox/simeth 30ml oral suspension PO PRN (14:25)
[2022-03-28] MEDS: normal saline 1000ml 1,000 ML IV SCH (15:04)
--- NOTE | 2022-03-28 15:04 | NUR ---
DR NAVA AT BEDSIDE .
[2022-03-28 15:14] LABS: MAGNESIUM 2.1 MG/DL (1.5-2.4); POTASSIUM 4.3 MMOL/L (3.5-5.1)
[2022-03-28] MEDS: pantoprazole 40MG/NS 100ML BAG 100 ML IV SCH (15:48)
--- NOTE | 2022-03-28 15:48 | NUR ---
PAUSED THE ZOSYN INFUSION FOR FEW MINS TO INFUSE THE PROTONIX DRIP .
[2022-03-28] MEDS: ipratropium/albuterol 3ml nebule NEB SCH ×3 (15:56→23:41)
[2022-03-28 16:00] VITALS: BP 146/68
[2022-03-28] MEDS ORDERED: piperacillin/tazo 3.375gm/50ml 50 ML IV SCH (16:00)
[2022-03-28] MEDS ORDERED: CETI-90 PO (16:32)
[2022-03-28] MEDS ORDERED: APIX5TAB3 PO (16:32)
[2022-03-28] MEDS ORDERED: DIVA250T15 PO (16:32)
[2022-03-28] MEDS ORDERED: CYAN500T71 PO (16:32)
[2022-03-28] MEDS ORDERED: HYDR-3965 PO (16:32)
[2022-03-28] MEDS ORDERED: [UNRECOGNIZED DRUG - OTHER] PO (16:32)
[2022-03-28] MEDS ORDERED: QUET25TA PO (16:32)
[2022-03-28] MEDS ORDERED: ENTA200T23 PO (16:32)
[2022-03-28] MEDS ORDERED: MONT10TA21 PO (16:32)
[2022-03-28] MEDS ORDERED: BUDE10.2 INH (16:32)
[2022-03-28] MEDS ORDERED: MELA5TAB12 PO (16:32)
[2022-03-28] MEDS ORDERED: DONE-46 PO (16:32)
[2022-03-28] MEDS ORDERED: PRED5TAB PO (16:32)
[2022-03-28] MEDS ORDERED: LYR25C PO (16:32)
[2022-03-28 18:00] VITALS: BP 158/80
[2022-03-28] MEDS: K and/or MAG REPLACEMENT MC SCH (20:00)
[2022-03-28] MEDS: docusate sod 100mg capsule PO SCH (20:00)
[2022-03-28 22:00] VITALS: BP 153/72
[2022-03-28] MEDS: piperacillin/tazo 3.375gm/50ml 50 ML IV SCH (22:16)
[2022-03-29 02:00] VITALS: BP 116/65
[2022-03-29] MEDS: ipratropium/albuterol 3ml nebule NEB SCH ×6 (02:34→23:28)
--- NOTE | 2022-03-29 03:23 | NUR ---
PT HAS BEEN RESTLESS, AGITATED HAS PULLED OUT MULTIPLE IV'S AND CONTINUALLY PUSHING BIPAP MASK OFF. RESP THERAPIST LISA FEELS PT WOULD BE OKAY WITH A NASAL CANNULA HIS FIO2 IS 30%. SPOKE TO DR QUISPE CONCERNING THESE ISSUES. HE WANTS US TO TRY HIS ATIVAN FIRST IF STILL UNABLE TO RELAX THEN WE CAN TRY THE CANNULA ONLY WE ARE ALSO HAVING A SITTER TO HELP BUT PT FIGHTING WITH BOTH ARMS SHE IS HAVING DIFFICULTY WITH HIS CONTROL.
[2022-03-29] MEDS: LORazepam 2 mg/ml vial IV PRN (03:26)
[2022-03-29 06:52] LABS: BASOPHILS % (AUTO) 0.1 % (0-1); EOSINOPHILS % (AUTO) 0 % (0-6); HEMATOCRIT 33.1 % (42.0-52.0); HEMOGLOBIN 10.7 g/dl (14.0-17.9); LYMPHOCYTES # (AUTO) 0.9 X10'3 (1.1-4.8); LYMPHOCYTES % (AUTO) 3.7 % (21-51); MEAN CORPUSCULAR HEMOGLOBIN 28.9 PG (27.0-31.0); MEAN CORPUSCULAR HGB CONC 32.3 g/dL (33.0-36.5); MEAN CORPUSCULAR VOLUME 89.4 FL (78-98); MEAN PLATELET VOLUME 8.5 FL (7.4-10.4); MONOCYTES # (AUTO) 1.3 X10'3 (0-0.9); MONOCYTES % (AUTO) 5.3 % (2-12); NEUTROPHILS # (AUTO) 21.3 X10'3 (1.8-7.7); NEUTROPHILS % (AUTO) 90.9 % (42-75); PLATELET COUNT 155 X10'3 (140-440); WHITE BLOOD COUNT 23.5 X10'3 (4.5-11.0)
--- NOTE | 2022-03-29 06:56 | NUR ---
Patient in room PCU 3016. I have received report from Citlalli CRUZ and had the opportunity to ask questions and assume patient care.
[2022-03-29 06:58] LABS: APTT 43 SECONDS (22-32)
[2022-03-29 07:09] VITALS: BP 135/106
--- NOTE | 2022-03-29 07:12 | NUR ---
[place] [id number] from Vee. Verified heparin drip running at 1000 units/hr. Blood urine noted and was passed on that pt had it since coming up from ED. Pt was more obtunded at shift change but slowly started to be more responsive to pain but disoriented and not following commands. Pt having some twitching. states probably related to his Parkinson's disease. Pt did take out x2 IV sites. Able to decrease bipap to 4L/ NC with oxygen sats in the mid 90's. Pt difficult IV stick and took several attempts by multiple people to regain access. Pt has very fragile skin and scattered bruising and got several small skin tears from dressings. Next pTT still pending at time time of shift change. Sitter was at bedside this am. Ativan x1 dose did not help. Family remained at bedside. Report given to Ethan this am. Heparin was running at 900 units/hr. Pt in no acute distress at time of handoff. Family at bedside. Addendum: 03/29/22 at 0723 by Luh Dunham RN When got report from Vee, she sent page to in regards to critical but decreasing lactic acid. Did not hear back from MD with any orders in regards to it.
[2022-03-29 07:31] LABS: ALANINE AMINOTRANSFERASE 28 U/L (12-78); ALBUMIN/GLOBULIN RATIO 0.9 (1.1-1.5); ALKALINE PHOSPHATASE 78 IU/L (46-116); ANION GAP 10 (8-16); ASPARTATE AMINO TRANSFERASE 49 U/L (10-37); BILIRUBIN,TOTAL 0.5 MG/DL (0.1-1.0); BLOOD UREA NITROGEN 31 MG/DL (7-18); BUN/CREATININE RATIO 23.3 (5.4-32.0); CALCIUM 8.6 MG/DL (8.5-10.1); CHLORIDE 107 MMOL/L (99-107); CREATININE 1.33 MG/DL (0.60-1.10); GLUCOSE 130 MG/DL (70-104); MAGNESIUM 2.6 MG/DL (1.5-2.4); POTASSIUM 3.9 MMOL/L (3.5-5.1); SODIUM 147 MMOL/L (135-145); TOTAL PROTEIN 6.5 G/DL (6.4-8.2); eGFR 51 ML/MIN
[2022-03-29] MEDS: docusate sod 100mg capsule PO SCH ×2 (08:00→20:00)
[2022-03-29] MEDS: K and/or MAG REPLACEMENT MC SCH ×2 (08:00→20:00)
[2022-03-29] MEDS: aspirin 81mg, enteric-coated 1 TAB TABLET.DR PO SCH (08:00)
[2022-03-29] MEDS: pantoprazole 40MG/NS 100ML BAG 100 ML IV SCH (09:43)
[2022-03-29] MEDS: piperacillin/tazo 3.375gm/50ml 50 ML IV SCH ×3 (09:43→22:17)
[2022-03-29] MEDS: normal saline 1000ml 1,000 ML IV SCH ×2 (09:44→10:25)
--- NOTE | 2022-03-29 10:46 | NUR ---
Noted pt with a low Mikel of 12. Per EMR pt with generalized 1+ trace edema and skin abrasions to right knee/elbow and left foot. Per EMR pt obtunded, currently NPO, pending BSS with ST. Will continue to follow closely and make recommendations as appropriate. Addendum: 03/29/22 at [address] Amended: Links added.
--- NOTE | 2022-03-29 11:17 | NUR ---
Nasal Trumpet removed during this per Dr. Garcia.
[2022-03-29 11:59] VITALS: BP 146/63
[2022-03-29] MEDS ORDERED: VANCOMYCIN 750MG IV in NS 250 ML IV SCH (12:00)
[2022-03-29] MEDS ORDERED: apixaban 5mg tablet PO ONE (12:50)
[2022-03-29] MEDS: carbidoba-levodopa 25-100mg tablet PO SCH ×3 (12:59→20:27)
[2022-03-29] MEDS: pramipexole 0.25mg tablet PO SCH ×2 (13:00→20:28)
[2022-03-29 17:11] VITALS: BP 146/75
[2022-03-29] MEDS: dextrose 5%-1/4 normal saline 1,000 ML IV SCH (17:25)
[2022-03-29] MEDS: dextrose 5%-1/2 normal saline 1,000 ML IV SCH (18:17)
--- NOTE | 2022-03-29 18:48 | NUR ---
Problems reprioritized. Patient report given, questions answered & plan of care reviewed with JUSTYNA RN.
--- NOTE | 2022-03-29 18:51 | NUR ---
PAGER ID: [phone] MESSAGE: Ethan PCU [id number] Re: [phone] [employer] Avendaño [employer] only has D5ns or D51/2Ns. Can not find d51/4ns anywhere what would you like me to do. Addendum: 03/29/22 at 1757 by Musa Rodriguez RN Received Orders from at this time.
--- NOTE | 2022-03-29 19:00 | NUR ---
RECEIVED REPORT FROM OUTGOING NURSE. PT DROWSY,OPENS EYES SPONT AND FOLLOW COMMANDS. GARBLED SPEAKING,MOVES ALL EXT BUT WEAK GENERALLY. O2 4L VIA NC, BIPAP WITH FIO2 30% AT NIGHT FOR KUN. NO SIGNS OF DISTRESS NOTED AT THE MOMENT. PIVX2. D5%1/2 NS AT 100ML/HR ONGOING PER ORDER. GOOD UO VIA COLEMAN CATH. FAMILY AT BEDSIDE. TOLERATING FAIRLY WITH CLEAR LIQUID. BED IN LOW POSITION. CALL LATHAM WITHIN REACH. WILL CONT TO MONITOR.
[2022-03-29] MEDS: apixaban 5mg tablet PO SCH (20:28)
[2022-03-29] MEDS: doxazosin mesylate 2mg tablet PO SCH (20:28)
[2022-03-29] MEDS: doxepin 25mg capsule PO SCH (20:28)
[2022-03-29] MEDS: ENTACAPONE 200 MG PO SCH (20:28)
[2022-03-29] MEDS: atorvastatin 20mg tablet PO SCH (20:28)
[2022-03-29 22:00] VITALS: BP 136/79
[2022-03-30] VITALS (7 sets, daily range): BP systolic 129–152; BP diastolic 46–72
--- NOTE | 2022-03-30 00:35 | NUR ---
PT IS SLEEPING. ON BIPAP. NO SIGNS OF DISTRESS NOTED. AFIB PASSES AT TIMES, MOSTLY SR ON TELE. SITTER AT BEDSIDE. POSITION CHANGE Q2HRS. WILL CONT TO MONITOR.
[2022-03-30] MEDS: HYDROcodone/acetaminophen 5mg/325mg tablet PO PRN ×2 (01:52→10:44)
--- NOTE | 2022-03-30 02:05 | NUR ---
PT COMPLAINED OF PAIN ON HIS LOWER BACK WHICH IS CHRONIC. PT IS AWAKE AND ORIENTED TO PERSON AND PLACE. PT STATED HE USED TO TAKE NORCO FOR BACK PAIN AT HOME. SWITCHED BACK FROM BIPAP TO O2 4L VIA NC. PAIN MEDS GIVEN. WILL CONT TO MONITOR.
[2022-03-30] MEDS: ipratropium/albuterol 3ml nebule NEB SCH ×6 (02:57→23:03)
[2022-03-30] MEDS: dextrose 5%-1/4 normal saline 1,000 ML IV SCH ×2 (03:25→18:38)
--- NOTE | 2022-03-30 03:34 | NUR ---
PT IS SLEEPING WITHOUT DISTRESS. ON BIPAP. SITTER AT BEDSIDE. WILL CONT TO MONITOR.
[2022-03-30] MEDS: dextrose 5%-1/2 normal saline 1,000 ML IV SCH ×2 (04:25→14:51)
[2022-03-30] MEDS: piperacillin/tazo 3.375gm/50ml 50 ML IV SCH ×3 (05:20→21:52)
--- NOTE | 2022-03-30 06:19 | NUR ---
PT RESTING IN BED WITHOUT DISTRESS. REPORT GIVEN TO ONCOMING NURSE. ALL QUESTIONS ANSWERED.
[2022-03-30 07:00] LABS: BASOPHILS % (AUTO) 0.1 % (0-1); EOSINOPHILS % (AUTO) 0 % (0-6); HEMATOCRIT 28.6 % (42.0-52.0); HEMOGLOBIN 9.3 g/dl (14.0-17.9); LYMPHOCYTES # (AUTO) 0.7 X10'3 (1.1-4.8); LYMPHOCYTES % (AUTO) 4.8 % (21-51); MEAN CORPUSCULAR HEMOGLOBIN 29.1 PG (27.0-31.0); MEAN CORPUSCULAR HGB CONC 32.5 g/dL (33.0-36.5); MEAN CORPUSCULAR VOLUME 89.5 FL (78-98); MEAN PLATELET VOLUME 8.3 FL (7.4-10.4); MONOCYTES % (AUTO) 6.6 % (2-12); NEUTROPHILS # (AUTO) 13.7 X10'3 (1.8-7.7); NEUTROPHILS % (AUTO) 88.5 % (42-75); PLATELET COUNT 139 X10'3 (140-440); RED BLOOD COUNT 3.19 X10'6 (4.70-6.10); RED CELL DISTRIBUTION WIDTH 16.7 % (11.5-14.5); WHITE BLOOD COUNT 15.5 X10'3 (4.5-11.0)
[2022-03-30 07:12] LABS: APTT 32 SECONDS (22-32)
[2022-03-30 07:32] LABS: ALANINE AMINOTRANSFERASE 21 U/L (12-78); ALBUMIN 2.4 G/DL (3.4-5.0); ALBUMIN/GLOBULIN RATIO 0.8 (1.1-1.5); ALKALINE PHOSPHATASE 64 IU/L (46-116); ANION GAP 7 (8-16); ASPARTATE AMINO TRANSFERASE 106 U/L (10-37); BILIRUBIN,TOTAL 0.4 MG/DL (0.1-1.0); BLOOD UREA NITROGEN 30 MG/DL (7-18); BUN/CREATININE RATIO 24.6 (5.4-32.0); CALCIUM 7.9 MG/DL (8.5-10.1); CHLORIDE 106 MMOL/L (99-107); CREATININE 1.22 MG/DL (0.60-1.10); GLUCOSE 124 MG/DL (70-104); MAGNESIUM 2.4 MG/DL (1.5-2.4); PHOSPHORUS 3.3 MG/DL (2.3-4.5); POTASSIUM 3.8 MMOL/L (3.5-5.1); SODIUM 144 MMOL/L (135-145); TOTAL CARBON DIOXIDE 30.6 MMOL/L (24-32); TOTAL PROTEIN 5.6 G/DL (6.4-8.2); eGFR 56 ML/MIN
[2022-03-30] MEDS: K and/or MAG REPLACEMENT MC SCH ×2 (08:00→20:00)
[2022-03-30] MEDS ORDERED: aspirin 81mg, enteric-coated 1 TAB TABLET.DR PO SCH (08:00)
[2022-03-30] MEDS ORDERED: furosemide 20 MG/2 ML vial IV ONE (08:05)
[2022-03-30] MEDS: carbidoba-levodopa 25-100mg tablet PO SCH ×2 (10:44→15:25)
[2022-03-30] MEDS: levoTHYROXINE 25mcg tablet PO SCH (10:45)
[2022-03-30] MEDS: aspirin 81mg, enteric-coated 1 TAB TABLET.DR PO SCH (10:46)
[2022-03-30] MEDS: docusate sod 100mg capsule PO SCH ×2 (10:47→20:29)
[2022-03-30] MEDS: clopidogrel 75mg tablet PO SCH (10:47)
[2022-03-30] MEDS: donepezil 5mg tablet PO SCH (10:49)
[2022-03-30] MEDS: apixaban 5mg tablet PO SCH ×2 (10:59→20:29)
[2022-03-30] MEDS ORDERED: vancomycin/NS 1 GM ADD-VANTAGE 250 ML IV SCH (12:00)
[2022-03-30] MEDS: ENTACAPONE 200 MG PO SCH ×2 (12:19→20:32)
[2022-03-30] MEDS: pramipexole 0.25mg tablet PO SCH ×2 (12:19→15:25)
[2022-03-30] MEDS: pantoprazole 40MG/NS 100ML BAG 100 ML IV SCH (12:20)
[2022-03-30] MEDS ORDERED: calcium gluconate inj. 2 GM in normal saline 100ml IV soln 100 ML IV ONE (16:55)
[2022-03-30] MEDS ORDERED: NORMAL SALINE IV ONE (17:25)
[2022-03-30] MEDS ORDERED: CALCIUM GLUCONATE IV ONE (17:25)
[2022-03-30] MEDS: HYDROcodone/acetaminophen 10/325mg tab PO PRN ×2 (19:09→23:14)
[2022-03-30] MEDS: doxazosin mesylate 2mg tablet PO SCH (20:30)
[2022-03-30] MEDS: atorvastatin 20mg tablet PO SCH (20:30)
[2022-03-30] MEDS: furosemide 20 MG/2 ML vial IV SCH (20:36)
[2022-03-30] MEDS: doxepin 25mg capsule PO SCH (21:51)
[2022-03-30] MEDS: HYDROmorphone inj. 0.5 MG/0.5 ML DISP.SYRIN IV PRN (22:38)
[2022-03-31] MEDS: dextrose 5%-1/2 normal saline 1,000 ML IV SCH ×2 (00:10→10:29)
[2022-03-31 02:00] VITALS: BP 125/48
[2022-03-31] MEDS: ipratropium/albuterol 3ml nebule NEB SCH ×6 (02:53→23:33)
[2022-03-31] MEDS: HYDROmorphone inj. 0.5 MG/0.5 ML DISP.SYRIN IV PRN ×4 (02:55→21:02)
[2022-03-31] MEDS: HYDROcodone/acetaminophen 10/325mg tab PO PRN (04:26)
[2022-03-31] MEDS: piperacillin/tazo 3.375gm/50ml 50 ML IV SCH (05:39)
[2022-03-31 06:00] VITALS: BP 125/48
[2022-03-31 06:35] LABS: BASOPHILS % (AUTO) 0.3 % (0-1); EOSINOPHILS # (AUTO) 0.2 X10'3 (0-0.9); EOSINOPHILS % (AUTO) 1.7 % (0-6); HEMATOCRIT 29.9 % (42.0-52.0); HEMOGLOBIN 9.6 g/dl (14.0-17.9); LYMPHOCYTES % (AUTO) 10.1 % (21-51); MEAN CORPUSCULAR HEMOGLOBIN 29.1 PG (27.0-31.0); MEAN CORPUSCULAR HGB CONC 32.3 g/dL (33.0-36.5); MEAN PLATELET VOLUME 8.1 FL (7.4-10.4); MONOCYTES # (AUTO) 0.9 X10'3 (0-0.9); MONOCYTES % (AUTO) 9.3 % (2-12); NEUTROPHILS # (AUTO) 7.7 X10'3 (1.8-7.7); NEUTROPHILS % (AUTO) 78.6 % (42-75); PLATELET COUNT 147 X10'3 (140-440); RED BLOOD COUNT 3.32 X10'6 (4.70-6.10); WHITE BLOOD COUNT 9.8 X10'3 (4.5-11.0)
[2022-03-31 06:49] LABS: APTT 30 SECONDS (22-32)
--- NOTE | 2022-03-31 06:54 | NUR ---
Patient in room PCU 3016. I have received report from Rudy CRUZ ( security shift manager) and had the opportunity to ask questions and assume patient care.
[2022-03-31 07:01] LABS: ALANINE AMINOTRANSFERASE 102 U/L (12-78); ALBUMIN 2.7 G/DL (3.4-5.0); ALBUMIN/GLOBULIN RATIO 0.8 (1.1-1.5); ALKALINE PHOSPHATASE 76 IU/L (46-116); ANION GAP 9 (8-16); ASPARTATE AMINO TRANSFERASE 209 U/L (10-37); BILIRUBIN,TOTAL 0.6 MG/DL (0.1-1.0); BLOOD UREA NITROGEN 20 MG/DL (7-18); BUN/CREATININE RATIO 16.7 (5.4-32.0); CALCIUM 8.1 MG/DL (8.5-10.1); CHLORIDE 106 MMOL/L (99-107); GLUCOSE 104 MG/DL (70-104); MAGNESIUM 2.1 MG/DL (1.5-2.4); POTASSIUM 3.4 MMOL/L (3.5-5.1); SODIUM 145 MMOL/L (135-145); TOTAL CARBON DIOXIDE 29.6 MMOL/L (24-32); eGFR 57 ML/MIN
--- NOTE | 2022-03-31 07:14 | NUR ---
Problems reprioritized. Patient report given, questions answered & plan of care reviewed with FLORAL. Addendum: 03/31/22 at 0714 by Tariq Sampson RN Amended: Links added.
[2022-03-31] MEDS: K and/or MAG REPLACEMENT MC SCH ×2 (08:00→19:49)
[2022-03-31] MEDS: furosemide 20 MG/2 ML vial IV SCH ×2 (09:44→19:49)
[2022-03-31] MEDS: pantoprazole 40mg Tablet.DR PO SCH (10:14)
[2022-03-31] MEDS: ENTACAPONE 200 MG PO SCH ×2 (10:14→19:49)
[2022-03-31] MEDS: donepezil 5mg tablet PO SCH (10:15)
[2022-03-31] MEDS: apixaban 5mg tablet PO SCH ×2 (10:16→19:49)
[2022-03-31] MEDS: levoTHYROXINE 25mcg tablet PO SCH (10:16)
[2022-03-31] MEDS: docusate sod 100mg capsule PO SCH ×2 (10:16→19:49)
[2022-03-31] MEDS: clopidogrel 75mg tablet PO SCH (10:16)
[2022-03-31] MEDS: aspirin 81mg, enteric-coated 1 TAB TABLET.DR PO SCH (10:16)
[2022-03-31 11:00] VITALS: BP 138/70
[2022-03-31] MEDS ORDERED: VANCOMYCIN LEVEL IV ONE (11:30)
[2022-03-31] MEDS: LIDOcaine 5% patch TP SCH (12:24)
--- NOTE | 2022-03-31 12:51 | NUR ---
PRESSURE ULCER EDUCATION: DEFINITION: A pressure ulcer is an area of skin that breaks down when you stay in one position too long. The constant pressure against the skin reduces the blood flow to that area and the affected tissue dies. CAUSES: "Being bedridden or in a wheelchair "Fragile skin "Having a chronic condition, such as diabetes or vascular disease "Inability to move certain parts of your body without assistance "Older age "Incontinence of urine or stool SYMPTOMS: "A reddened area that DOES NOT turn white when pressed on - this can be the beginning of a pressure ulcer "A blister, deep sore or a crater - these can be advanced pressure ulcers FIRST AID: "Relieve the pressure on this area "Keep the area clean and dry "Call your primary doctor if you see any of the above symptoms "DO NOT massage the area "DO NOT use a donut shaped or ring shaped pillow- these actually interfere with the blood flow and cause complications PREVENTION: "Check for pressure ulcers everyday "Change position at least every two hours to relieve pressure "Use items that help relieve pressure- pillows, sheepskin, foam padding, and powders. "Keep skin clean and dry "Eat healthy well balanced meals "Exercise daily IF YOU SEE ANY OF THESE SYMPTOMS WHILE IN THE HOSPITAL - TELL YOUR NURSE IMMEDIATELY. IF YOU SEE ANY OF THESE SYMPTOMS WHILE AT HOME OR HAVE ANY QUESTIONS OR CONCERNS ABOUT PRESSURE ULCERS - CALL YOUR PRIMARY DOCTOR IMMEDIATELY. Addendum: 03/31/22 at 1251 by Merlyn Bear LVN Amended: Links added.
[2022-03-31 17:36] VITALS: BP 182/85
--- NOTE | 2022-03-31 17:38 | NUR ---
Dr Wallace paged and informed about pt's BP-182/85. HR-73. Patient asymptomatic. Awaiting Dr Wallace to call me back.
[2022-03-31] MEDS: potassium Cl 20 mEq SR tablet PO SCH (17:46)
[2022-03-31] MEDS: calcium carbonate 500mg tablet PO SCH (17:47)
[2022-03-31] MEDS: HYDROcodone/acetaminophen 5mg/325mg tablet PO PRN (17:47)
[2022-03-31 19:10] VITALS: BP 191/83
[2022-03-31] MEDS ORDERED: POTASSIUM BICARB 20meq eff tab 20 MEQ TABLET.EFF PO PRN (19:40)
[2022-03-31] MEDS: doxazosin mesylate 2mg tablet PO SCH (21:07)
[2022-03-31] MEDS: doxepin 25mg capsule PO SCH (21:07)
[2022-03-31] MEDS: atorvastatin 20mg tablet PO SCH (21:09)
[2022-03-31] MEDS: LORazepam 2 mg/ml vial IV PRN (21:38)
[2022-03-31 22:00] VITALS: BP 165/84
[2022-04-01 02:00] VITALS: BP 158/83
[2022-04-01] MEDS: ipratropium/albuterol 3ml nebule NEB SCH ×2 (02:38→07:28)
[2022-04-01] MEDS: HYDROmorphone inj. 0.5 MG/0.5 ML DISP.SYRIN IV PRN (04:00)
--- NOTE | 2022-04-01 06:53 | NUR ---
Problems reprioritized. Patient report given, questions answered & plan of care reviewed with [facility]. Addendum: 04/01/22 at 0653 by Tariq Sampson RN Amended: Links added.
[2022-04-01 07:00] VITALS: BP 152/74
[2022-04-01 07:06] LABS: BASOPHILS % (AUTO) 0.4 % (0-1); EOSINOPHILS # (AUTO) 0.3 X10'3 (0-0.9); EOSINOPHILS % (AUTO) 2.5 % (0-6); HEMATOCRIT 32.8 % (42.0-52.0); HEMOGLOBIN 10.8 g/dl (14.0-17.9); LYMPHOCYTES # (AUTO) 0.8 X10'3 (1.1-4.8); LYMPHOCYTES % (AUTO) 8.2 % (21-51); MEAN CORPUSCULAR HEMOGLOBIN 29.3 PG (27.0-31.0); MEAN CORPUSCULAR HGB CONC 32.8 g/dL (33.0-36.5); MEAN CORPUSCULAR VOLUME 89.3 FL (78-98); MEAN PLATELET VOLUME 8.2 FL (7.4-10.4); MONOCYTES # (AUTO) 1.1 X10'3 (0-0.9); MONOCYTES % (AUTO) 10.9 % (2-12); NEUTROPHILS # (AUTO) 7.9 X10'3 (1.8-7.7); PLATELET COUNT 179 X10'3 (140-440); RED BLOOD COUNT 3.67 X10'6 (4.70-6.10); RED CELL DISTRIBUTION WIDTH 15.9 % (11.5-14.5); WHITE BLOOD COUNT 10.1 X10'3 (4.5-11.0)
[2022-04-01 07:37] LABS: ALANINE AMINOTRANSFERASE 139 U/L (12-78); ALBUMIN 2.7 G/DL (3.4-5.0); ALBUMIN/GLOBULIN RATIO 0.7 (1.1-1.5); ALKALINE PHOSPHATASE 84 IU/L (46-116); ANION GAP 8 (8-16); ASPARTATE AMINO TRANSFERASE 113 U/L (10-37); BILIRUBIN,TOTAL 0.7 MG/DL (0.1-1.0); BLOOD UREA NITROGEN 15 MG/DL (7-18); BUN/CREATININE RATIO 14.2 (5.4-32.0); CALCIUM 8.6 MG/DL (8.5-10.1); CHLORIDE 104 MMOL/L (99-107); CREATININE 1.06 MG/DL (0.60-1.10); GLUCOSE 87 MG/DL (70-104); MAGNESIUM 1.9 MG/DL (1.5-2.4); SODIUM 142 MMOL/L (135-145); TOTAL CARBON DIOXIDE 30.2 MMOL/L (24-32); TOTAL PROTEIN 6.4 G/DL (6.4-8.2); eGFR 66 ML/MIN
[2022-04-01] MEDS: K and/or MAG REPLACEMENT MC SCH ×2 (08:00→20:00)
[2022-04-01] MEDS ORDERED: cyclobenzaprine 10mg tablet PO SCH (08:15)
[2022-04-01] MEDS ORDERED: HYDROmorphone inj. 0.5 MG/0.5 ML DISP.SYRIN IV PRN (08:15)
--- NOTE | 2022-04-01 08:40 | NUR ---
Initial; Pt admitted w/ sepsis secondary to UTI, acute renal failure, and hypocalcemia per EMR. Pt was on Clear/full liquid diet from 03/29- and was advanced to MM5 thins per FIRE REGULATOR on 03/31. Pt had ~25% of first 2 solid meals, needs feeder per documentation. Pt could benefit from Ensure Enlive TID to assist w/ meeting increased needs. Pt noted to be intermittently on CPAP. LBM 03/30 receiving routine colace. Will continue to monitor. Recs; 1. Continue MM5 diet per FIRE REGULATOR recs; assist w/ meals 2. Ensure Enlive TID; pending MD verification 3. Bowel care per rx 4. Scaled wts Addendum: 04/01/22 at [address] Amended: Links added.
[2022-04-01] MEDS: apixaban 5mg tablet PO SCH ×2 (09:02→23:29)
[2022-04-01] MEDS: levoTHYROXINE 25mcg tablet PO SCH (09:02)
[2022-04-01] MEDS: docusate sod 100mg capsule PO SCH ×2 (09:02→23:29)
[2022-04-01] MEDS: clopidogrel 75mg tablet PO SCH (09:02)
[2022-04-01] MEDS: furosemide 20 MG/2 ML vial IV SCH (09:03)
[2022-04-01] MEDS: calcium carbonate 500mg tablet PO SCH ×3 (09:03→16:51)
[2022-04-01] MEDS: donepezil 5mg tablet PO SCH (09:03)
[2022-04-01] MEDS: aspirin 81mg, enteric-coated 1 TAB TABLET.DR PO SCH (09:03)
[2022-04-01] MEDS: LIDOcaine 5% patch TP SCH (09:05)
[2022-04-01] MEDS: CefTRIAXone/D5W-Rocephin 1gm 50 ML IV SCH (09:05)
[2022-04-01] MEDS: duloxetine 20mg capsule.DR PO SCH (09:09)
[2022-04-01] MEDS: potassium Cl 20 mEq SR tablet PO SCH ×2 (09:09→16:51)
[2022-04-01] MEDS: pantoprazole 40mg Tablet.DR PO SCH (09:15)
[2022-04-01] MEDS: ENTACAPONE 200 MG PO SCH (09:16)
[2022-04-01] MEDS: normal saline 1000ml 1,000 ML IV SCH ×2 (11:00→23:45)
[2022-04-01 11:05] LABS: ABG BASE EXCESS 1.7 mmol/L (-2.0-2.0); ABG HCO3 26.5 mmol/L (22.0-26.0); ABG OXYGEN SATURATION 90.6 % (94-97); ABG PCO2 (T) 43.7 mmHg (35.0-48.0); ABG PO2 (T) 66.7 mmHg (75.0-100.0); FCOHb 0.4 % (0.0-3.9); FLOW 4 L/min; FMetHb 0.3 % (0.0-1.5); PATIENT TEMPERATURE 37.7; TOTAL HEMOGLOBIN 10.8 G/dl (14.0-18.0)
[2022-04-01 11:21] VITALS: BP 141/73
[2022-04-01 15:00] VITALS: BP 137/67
[2022-04-01 18:00] VITALS: BP 156/72
--- NOTE | 2022-04-01 18:04 | NUR ---
PATIENT'S DAY WAS UNEVENTFUL. HE SLEPT FOR A GREATER PART OF THE DAY. HE IS CURRENTLY AWAKE, ALERT AND ORIENTED TO PERSON AND PLACE. ON 2LNC, NO FORM OF DISTRESS NOTED. ATE OVER 75% OF HIS LUNCH TRAY. HAS BEEN AT THE BEDSIDE SINCE AM, PT AND HIS WERE BRIEFLY JOINED BY DAUGHTER. HIS VITALS HAS REMAINED STABLE. SAFETY MAINTAINED. REMAINS ON CLOSE OBSERVATION FOR SAFETY AND FOR REDIRECTION/REORIENTATION. WILL ENDORSE CARE TO PM RN FOR RESUMPTION.
[2022-04-01] MEDS: doxepin 25mg capsule PO SCH (20:18)
[2022-04-01] MEDS: doxazosin mesylate 2mg tablet PO SCH (20:18)
--- NOTE | 2022-04-01 20:20 | NUR ---
Patient's daughter notified that his day time medications were given around 1600. So this RN will be giving medications that are scheduled at 2000 later at a safer window at around 2300 per Pharmacist.
[2022-04-01] MEDS ORDERED: cyclobenzaprine 10mg tablet PO PRN (21:05)
[2022-04-01] MEDS: HYDROcodone/acetaminophen 10/325mg tab PO PRN (21:53)
[2022-04-01] MEDS: lactose-reduced food (Ensure Enlive) - 237ml bottle PO SCH (21:57)
[2022-04-01 22:00] VITALS: BP 162/82
[2022-04-02] MEDS: lactose-reduced food (Ensure Enlive) - 237ml bottle PO SCH ×6 (00:38→18:57)
[2022-04-02 02:00] VITALS: BP 149/55
[2022-04-02] MEDS: HYDROcodone/acetaminophen 5mg/325mg tablet PO PRN (05:40)
[2022-04-02 07:25] LABS: BASOPHILS % (AUTO) 0.4 % (0-1); EOSINOPHILS # (AUTO) 0.3 X10'3 (0-0.9); HEMATOCRIT 31.3 % (42.0-52.0); HEMOGLOBIN 10.3 g/dl (14.0-17.9); LYMPHOCYTES % (AUTO) 9.2 % (21-51); MEAN CORPUSCULAR HEMOGLOBIN 29.8 PG (27.0-31.0); MEAN CORPUSCULAR HGB CONC 32.9 g/dL (33.0-36.5); MEAN CORPUSCULAR VOLUME 90.4 FL (78-98); MEAN PLATELET VOLUME 8.1 FL (7.4-10.4); MONOCYTES # (AUTO) 1.1 X10'3 (0-0.9); NEUTROPHILS # (AUTO) 8.3 X10'3 (1.8-7.7); NEUTROPHILS % (AUTO) 77.4 % (42-75); PLATELET COUNT 201 X10'3 (140-440); RED BLOOD COUNT 3.46 X10'6 (4.70-6.10); RED CELL DISTRIBUTION WIDTH 15.7 % (11.5-14.5); WHITE BLOOD COUNT 10.8 X10'3 (4.5-11.0)
[2022-04-02 07:30] VITALS: BP 152/68
[2022-04-02 08:00] LABS: ALANINE AMINOTRANSFERASE 121 U/L (12-78); ALBUMIN 2.5 G/DL (3.4-5.0); ALBUMIN/GLOBULIN RATIO 0.7 (1.1-1.5); ALKALINE PHOSPHATASE 89 IU/L (46-116); ANION GAP 9 (8-16); ASPARTATE AMINO TRANSFERASE 88 U/L (10-37); BILIRUBIN,TOTAL 0.5 MG/DL (0.1-1.0); BLOOD UREA NITROGEN 18 MG/DL (7-18); BUN/CREATININE RATIO 16.8 (5.4-32.0); CALCIUM 8.6 MG/DL (8.5-10.1); CHLORIDE 108 MMOL/L (99-107); CREATININE 1.07 MG/DL (0.60-1.10); GLUCOSE 90 MG/DL (70-104); POTASSIUM 4.1 MMOL/L (3.5-5.1); SODIUM 144 MMOL/L (135-145); TOTAL CARBON DIOXIDE 27.5 MMOL/L (24-32); TOTAL PROTEIN 6.1 G/DL (6.4-8.2); eGFR 65 ML/MIN
[2022-04-02] MEDS: K and/or MAG REPLACEMENT MC SCH ×2 (08:00→19:35)
[2022-04-02] MEDS: docusate sod 100mg capsule PO SCH ×2 (08:58→19:33)
[2022-04-02] MEDS: CefTRIAXone/D5W-Rocephin 1gm 50 ML IV SCH (08:58)
[2022-04-02] MEDS: calcium carbonate 500mg tablet PO SCH ×3 (08:58→17:30)
[2022-04-02] MEDS: duloxetine 20mg capsule.DR PO SCH (08:58)
[2022-04-02] MEDS: levoTHYROXINE 25mcg tablet PO SCH (08:59)
[2022-04-02] MEDS: aspirin 81mg, enteric-coated 1 TAB TABLET.DR PO SCH (08:59)
[2022-04-02] MEDS: donepezil 5mg tablet PO SCH (08:59)
[2022-04-02] MEDS: clopidogrel 75mg tablet PO SCH (08:59)
[2022-04-02] MEDS: apixaban 5mg tablet PO SCH ×2 (08:59→19:32)
[2022-04-02] MEDS: potassium Cl 20 mEq SR tablet PO SCH ×2 (09:01→17:30)
[2022-04-02] MEDS: pantoprazole 40mg Tablet.DR PO SCH (09:03)
[2022-04-02] MEDS: HYDROcodone/acetaminophen 10/325mg tab PO PRN (11:04)
[2022-04-02 11:30] VITALS: BP 153/73
[2022-04-02] MEDS ORDERED: cyclobenzaprine 10mg tablet PO ONE ×3 (11:55→12:35)
[2022-04-02] MEDS: normal saline 1000ml 1,000 ML IV SCH ×2 (13:22→23:01)
[2022-04-02 14:29] LABS: RED BLOOD COUNT 3.57 X10'6 (4.70-6.10)
[2022-04-02 15:12] LABS: % IRON SATURATION 10 % (11-46); IRON 20 UG/DL (53-167); TOTAL IRON BINDING CAPACITY 201 UG/DL (259-388)
[2022-04-02 15:30] VITALS: BP 129/58
[2022-04-02] MEDS: LORazepam 2 mg/ml vial IV PRN (16:10)
--- NOTE | 2022-04-02 17:50 | NUR ---
PATIENT IS AWAKE, ALERT AND ORIENTEDX2. PERIODS OF CONFUSION REMAINS. REQUIRED PRN NORCO AND LORAZEPAM FOR PAIN AND RESTLESSNESS RESPECTIVELY. HIS VITALS ARE STABLE. COLEMAN D/C AROUND 4PM. PT IS DUE TO VOID. ON 2LNC, NO FORM OF DISTRESS NOTED. TURNED/REPOSITIONED/ SAT UP ON CHAIR FOR COMFORT AND TO MAINTAIN SKIN INTEGRITY. SAFETY MEASURES IN PLACE. SPOUSE AT BEDSIDE MOST OF THE DAY. SHE HAS NOW LEFT HIS BEDSIDE. CLOSE OBS IN PLACE FOR SAFETY. WILL ENDORSE CARE TO PM RN FOR RESUMPTION OF CARE
[2022-04-02 18:00] VITALS: BP 153/78
[2022-04-02] MEDS ORDERED: HYDROcodone/acetaminophen 10/325mg tab PO SCH ×2 (19:00→19:25)
[2022-04-02] MEDS: cyclobenzaprine 10mg tablet PO SCH (21:43)
[2022-04-02] MEDS: doxepin 25mg capsule PO SCH (21:44)
[2022-04-02] MEDS: doxazosin mesylate 2mg tablet PO SCH (21:44)
[2022-04-02 22:00] VITALS: BP 157/69
[2022-04-03 02:00] VITALS: BP 158/79
[2022-04-03] MEDS: HYDROcodone/acetaminophen 5mg/325mg tablet PO PRN (03:30)
--- NOTE | 2022-04-03 06:26 | NUR ---
Problems reprioritized. Patient report given, questions answered & plan of care reviewed with NANCY Aburto.
[2022-04-03 06:37] LABS: BASOPHILS % (AUTO) 0.5 % (0-1); EOSINOPHILS # (AUTO) 0.3 X10'3 (0-0.9); HEMATOCRIT 29.4 % (42.0-52.0); HEMOGLOBIN 9.8 g/dl (14.0-17.9); LYMPHOCYTES % (AUTO) 9.6 % (21-51); MEAN CORPUSCULAR HEMOGLOBIN 29.9 PG (27.0-31.0); MEAN CORPUSCULAR HGB CONC 33.5 g/dL (33.0-36.5); MEAN CORPUSCULAR VOLUME 89.2 FL (78-98); MEAN PLATELET VOLUME 7.5 FL (7.4-10.4); MONOCYTES # (AUTO) 1.2 X10'3 (0-0.9); MONOCYTES % (AUTO) 11.5 % (2-12); NEUTROPHILS # (AUTO) 7.9 X10'3 (1.8-7.7); NEUTROPHILS % (AUTO) 75.4 % (42-75); PLATELET COUNT 239 X10'3 (140-440); RED BLOOD COUNT 3.29 X10'6 (4.70-6.10); WHITE BLOOD COUNT 10.5 X10'3 (4.5-11.0)
[2022-04-03 07:29] LABS: ALANINE AMINOTRANSFERASE 107 U/L (12-78); ALBUMIN 2.4 G/DL (3.4-5.0); ALBUMIN/GLOBULIN RATIO 0.7 (1.1-1.5); ALKALINE PHOSPHATASE 81 IU/L (46-116); ANION GAP 9 (8-16); ASPARTATE AMINO TRANSFERASE 66 U/L (10-37); BILIRUBIN,TOTAL 0.4 MG/DL (0.1-1.0); BLOOD UREA NITROGEN 16 MG/DL (7-18); BUN/CREATININE RATIO 16.5 (5.4-32.0); CALCIUM 8.4 MG/DL (8.5-10.1); CHLORIDE 106 MMOL/L (99-107); CREATININE 0.97 MG/DL (0.60-1.10); GLUCOSE 91 MG/DL (70-104); POTASSIUM 4.2 MMOL/L (3.5-5.1); SODIUM 141 MMOL/L (135-145); TOTAL PROTEIN 5.9 G/DL (6.4-8.2); eGFR 73 ML/MIN
[2022-04-03] MEDS: duloxetine 20mg capsule.DR PO SCH (07:50)
[2022-04-03] MEDS: docusate sod 100mg capsule PO SCH ×2 (07:50→19:34)
[2022-04-03] MEDS: potassium Cl 20 mEq SR tablet PO SCH ×2 (07:51→17:56)
[2022-04-03] MEDS: clopidogrel 75mg tablet PO SCH (07:51)
[2022-04-03] MEDS: levoTHYROXINE 25mcg tablet PO SCH (07:51)
[2022-04-03] MEDS: aspirin 81mg, enteric-coated 1 TAB TABLET.DR PO SCH (07:51)
[2022-04-03] MEDS: apixaban 5mg tablet PO SCH ×2 (07:51→19:34)
[2022-04-03] MEDS: pantoprazole 40mg Tablet.DR PO SCH (07:51)
[2022-04-03] MEDS: calcium carbonate 500mg tablet PO SCH ×3 (07:52→17:56)
[2022-04-03] MEDS: K and/or MAG REPLACEMENT MC SCH ×2 (07:54→19:09)
[2022-04-03] MEDS: HYDROcodone/acetaminophen 5mg/325mg tablet PO SCH ×3 (07:54→15:05)
[2022-04-03] MEDS: lactose-reduced food (Ensure Enlive) - 237ml bottle PO SCH ×4 (07:55→20:07)
[2022-04-03] MEDS: cyclobenzaprine 10mg tablet PO SCH ×2 (08:00→10:29)
[2022-04-03] MEDS ORDERED: prednisone 10mg tablet PO SCH ×2 (08:30→08:52)
[2022-04-03] MEDS ORDERED: prednisone 10mg tablet PO ONE (08:30)
--- NOTE | 2022-04-03 08:50 | NUR ---
Scheduled scored medications brought up to floor however no scannable barcodes. Called pharmacy and tech says they will work on it.
[2022-04-03] MEDS ORDERED: donepezil 5mg tablet PO SCH (08:51)
[2022-04-03] MEDS: CefTRIAXone/D5W-Rocephin 1gm 50 ML IV SCH (09:34)
[2022-04-03] MEDS: ipratropium/albuterol 3ml nebule NEB PRN ×2 (09:47→14:43)
[2022-04-03] MEDS ORDERED: donepezil 5mg tablet PO ONE (10:05)
[2022-04-03] MEDS ORDERED: predniSONE 5mg tablet PO SCH (10:07)
[2022-04-03] MEDS ORDERED: predniSONE 5mg tablet PO ONE (10:10)
--- NOTE | 2022-04-03 10:16 | NUR ---
Orders for this AM disappeared off due now medications. Waiting on pharmacy to deliver 8am meds still with barcode. Spoke with both pharmacist and they are aware.
[2022-04-03 11:08] VITALS: BP 143/73
[2022-04-03] MEDS: normal saline 1000ml 1,000 ML IV SCH (11:39)
[2022-04-03 15:00] VITALS: BP 152/63
--- NOTE | 2022-04-03 15:39 | NUR ---
PAGER ID: [phone] MESSAGE: Chidi Avendaño [phone] Can we remove sitter order? Family usually in room anyway. Criselda [phone]
[2022-04-03] MEDS ORDERED: ferrous sulfate 325mg tablet PO SCH (17:30)
[2022-04-03] MEDS: ascorbic acid 500mg tablet PO SCH (17:56)
[2022-04-03 18:00] VITALS: BP 145/71
--- NOTE | 2022-04-03 18:05 | NUR ---
Pt's family taking advantage of visiting. Demanding staff's constant attention and noncompliant ( trying to feed pt. while sleeping, attempting to transfer pt. out of bed w/o help) Family planning on stay until 10pm or later and have been here since 0700 this AM. They have refused to let the pt rest and continue to wake him up constantly. Security states dye box operator responsible for after hours. Spoke to POM dye box operator. He was unaware. Will leave note for staff that pt. can only have visitors during visiting hours unless he is very agitated and then in that case he can have one visitor console him for a short amount of time.
--- NOTE | 2022-04-03 18:54 | NUR ---
Report given to Lynda CRUZ.
[2022-04-03] MEDS: doxazosin mesylate 2mg tablet PO SCH (19:33)
[2022-04-03] MEDS: HYDROcodone/acetaminophen 10/325mg tab PO SCH ×2 (19:33→21:00)
[2022-04-03] MEDS ORDERED: furosemide 40mg tablet PO SCH (20:00)
[2022-04-03] MEDS: doxepin 25mg capsule PO SCH (21:00)
[2022-04-03] MEDS ORDERED: cyclobenzaprine 10mg tablet PO SCH (21:00)
[2022-04-03 22:00] VITALS: BP 154/97
[2022-04-04 02:00] VITALS: BP 156/77
[2022-04-04] MEDS: HYDROcodone/acetaminophen 5mg/325mg tablet PO PRN (02:03)
[2022-04-04 06:44] VITALS: BP 166/102
[2022-04-04 07:05] LABS: BASOPHILS # (AUTO) 0.1 X10'3 (0-0.2); BASOPHILS % (AUTO) 0.6 % (0-1); EOSINOPHILS # (AUTO) 0.3 X10'3 (0-0.9); EOSINOPHILS % (AUTO) 3.3 % (0-6); HEMATOCRIT 28.3 % (42.0-52.0); HEMOGLOBIN 9.6 g/dl (14.0-17.9); LYMPHOCYTES # (AUTO) 1.2 X10'3 (1.1-4.8); LYMPHOCYTES % (AUTO) 14.3 % (21-51); MEAN CORPUSCULAR HGB CONC 33.8 g/dL (33.0-36.5); MEAN CORPUSCULAR VOLUME 88.8 FL (78-98); MEAN PLATELET VOLUME 7.3 FL (7.4-10.4); MONOCYTES % (AUTO) 12.6 % (2-12); NEUTROPHILS # (AUTO) 5.7 X10'3 (1.8-7.7); NEUTROPHILS % (AUTO) 69.2 % (42-75); PLATELET COUNT 262 X10'3 (140-440); RED BLOOD COUNT 3.19 X10'6 (4.70-6.10); RED CELL DISTRIBUTION WIDTH 15.8 % (11.5-14.5); WHITE BLOOD COUNT 8.3 X10'3 (4.5-11.0)
[2022-04-04 07:15] LABS: ALANINE AMINOTRANSFERASE 102 U/L (12-78); ALBUMIN 2.5 G/DL (3.4-5.0); ALBUMIN/GLOBULIN RATIO 0.7 (1.1-1.5); ALKALINE PHOSPHATASE 90 IU/L (46-116); ANION GAP 7 (8-16); ASPARTATE AMINO TRANSFERASE 57 U/L (10-37); BILIRUBIN,TOTAL 0.3 MG/DL (0.1-1.0); BLOOD UREA NITROGEN 18 MG/DL (7-18); BUN/CREATININE RATIO 17.6 (5.4-32.0); CALCIUM 8.4 MG/DL (8.5-10.1); CHLORIDE 107 MMOL/L (99-107); CREATININE 1.02 MG/DL (0.60-1.10); GLUCOSE 91 MG/DL (70-104); POTASSIUM 4.3 MMOL/L (3.5-5.1); SODIUM 143 MMOL/L (135-145); TOTAL CARBON DIOXIDE 29.2 MMOL/L (24-32); eGFR 69 ML/MIN
[2022-04-04] MEDS: aspirin 81mg, enteric-coated 1 TAB TABLET.DR PO SCH (07:40)
[2022-04-04] MEDS: clopidogrel 75mg tablet PO SCH (07:40)
[2022-04-04] MEDS: levoTHYROXINE 25mcg tablet PO SCH (07:41)
[2022-04-04] MEDS: pantoprazole 40mg Tablet.DR PO SCH (07:42)
[2022-04-04] MEDS: docusate sod 100mg capsule PO SCH (07:42)
[2022-04-04] MEDS: apixaban 5mg tablet PO SCH (07:42)
[2022-04-04] MEDS: duloxetine 20mg capsule.DR PO SCH (07:43)
[2022-04-04] MEDS: HYDROcodone/acetaminophen 5mg/325mg tablet PO SCH ×2 (07:44→13:57)
[2022-04-04] MEDS: K and/or MAG REPLACEMENT MC SCH (07:49)
[2022-04-04] MEDS: normal saline 1000ml 1,000 ML IV SCH (07:49)
[2022-04-04] MEDS: calcium carbonate 500mg tablet PO SCH (07:57)
[2022-04-04] MEDS: potassium Cl 20 mEq SR tablet PO SCH (07:57)
[2022-04-04] MEDS: ferrous sulfate 325mg tablet PO SCH ×2 (07:57→13:47)
[2022-04-04] MEDS: ascorbic acid 500mg tablet PO SCH ×2 (07:57→13:47)
[2022-04-04] MEDS ORDERED: multivitamins, therapeutics tablet PO SCH (08:00)
[2022-04-04 11:00] VITALS: BP 156/66
[2022-04-04] MEDS ORDERED: HYDR-3972 PO (11:55)
[2022-04-04] MEDS ORDERED: HYDR-3964 PO (11:55)
[2022-04-04] MEDS ORDERED: DOXE25CA3 PO (11:55)
[2022-04-04] MEDS ORDERED: HYDR-3965 PO (11:55)
[2022-04-04] MEDS ORDERED: DULO20CA18 PO (11:55)
[2022-04-04] MEDS ORDERED: CYCL-1 PO (11:55)
[2022-04-04] MEDS: lactose-reduced food (Ensure Enlive) - 237ml bottle PO SCH (13:00)
--- NOTE | 2022-04-04 15:19 | NUR ---
DISCHARGE NOTE: Discharge paperwork reviewed with pt. and daughter. Medications thoroughly discussed, including purpose, schedule, and possible ASE. Daughter is aware what medication to STOP having pt. take. She is aware of ST evaluation and recommendations. Follow up discussed with good verbal feedback. WENDY DC'd by nursing machine operations supervisor. Pt. dressed tele removed and returned, and pt wheeled downstairs to go home with HH, private nurse and daughter.
== END 2022-04-04 15:18 | disposition home health service (06) | DRG 871 ==
LOC: ER 10:19 → ED HOLD 14:30 → PCU 3S 16:22
PROVIDERS: ADMIT Family Medicine; ATTEND Family Medicine
PROC: 5A09357 Assistance with Respiratory Ventilation, Less than 24 Consecutive Hours, Continuous Positive Airway Pressure (ICD-10-PCS; principal; 2022-03-28)
PROC: 5A09357 Assistance with Respiratory Ventilation, Less than 24 Consecutive Hours, Continuous Positive Airway Pressure (ICD-10-PCS; 2022-03-29)
PROC: 5A09357 Assistance with Respiratory Ventilation, Less than 24 Consecutive Hours, Continuous Positive Airway Pressure (ICD-10-PCS; 2022-03-30)
PROC: 5A09357 Assistance with Respiratory Ventilation, Less than 24 Consecutive Hours, Continuous Positive Airway Pressure (ICD-10-PCS; 2022-04-01)
PROC: 5A09357 Assistance with Respiratory Ventilation, Less than 24 Consecutive Hours, Continuous Positive Airway Pressure (ICD-10-PCS; 2022-04-04)
DX: A41.9 Sepsis, unspecified organism (principal); G93.41 Metabolic encephalopathy; J96.01 Acute respiratory failure with hypoxia; I21.A1 Myocardial infarction type 2; N17.0 Acute kidney failure with tubular necrosis; I13.0 Hypertensive heart and chronic kidney disease with heart failure and stage 1 through stage 4 chronic kidney disease, or unspecified chronic kidney disease; I47.2 Ventricular tachycardia; N39.0 Urinary tract infection, site not specified; E87.0 Hyperosmolality and hypernatremia; N13.8 Other obstructive and reflux uropathy; E03.9 Hypothyroidism, unspecified; E78.00 Pure hypercholesterolemia, unspecified; Z20.822 Contact with and (suspected) exposure to COVID-19; F02.80 Dementia in other diseases classified elsewhere, unspecified severity, without behavioral disturbance, psychotic disturbance, mood disturbance, and anxiety; G20 Parkinson's disease; G89.29 Other chronic pain; I50.9 Heart failure, unspecified; R13.10 Dysphagia, unspecified; R31.9 Hematuria, unspecified; E83.51 Hypocalcemia; N40.1 Benign prostatic hyperplasia with lower urinary tract symptoms; N18.30 Chronic kidney disease, stage 3 unspecified; I27.20 Pulmonary hypertension, unspecified; M06.9 Rheumatoid arthritis, unspecified; R74.01 Elevation of levels of liver transaminase levels; D50.9 Iron deficiency anemia, unspecified; I48.0 Paroxysmal atrial fibrillation; J44.9 Chronic obstructive pulmonary disease, unspecified; B96.4 Proteus (mirabilis) (morganii) as the cause of diseases classified elsewhere; R65.20 Severe sepsis without septic shock; Z66 Do not resuscitate; Z96.619 Presence of unspecified artificial shoulder joint; Z96.653 Presence of artificial knee joint, bilateral; G47.33 Obstructive sleep apnea (adult) (pediatric); R31.0 Gross hematuria; M54.9 Dorsalgia, unspecified; R45.1 Restlessness and agitation; Z95.2 Presence of prosthetic heart valve; Z88.5 Allergy status to narcotic agent; Z88.8 Allergy status to other drugs, medicaments and biological substances
CPT/HCPCS: 36415; 36600; 70450; 71045; 71250; 74176; 80053; 81001; 82607; 82800; 82803; 82948; 83540; 83550; 83605; 83735; 84100; 84132; 84145; 84443; 84484; 85007; 85018; 85025; 85045; 85610; 85730; 87040; 87077; 87088; 87186; 87502; 87503; 87811; 92508; 92616; 93005; 93306; 94640; 94660; 94664; 94668; 94760; 96365; 96375; 97110; 97116; 97161; 97530; 97535; 99291; 99292; A4349; A4615; A4649; A5200; A6250; A6402; C1758; C9113; G0378; J0610; J0696; J1170; J1644; J1940; J2060; J2543; J2930; J3370; J3475; J3490; J7030; J7042; J7050; J7120; J7512